=== PATIENT | male | born 1945 | race Caucasian/White ===

== ENCOUNTER 2022-12-20 09:30 | Outpatient (OUT) | payer MEDICARE, OTHER, SELFPAY ==
[2022-12-20 10:09] LABS: Basophils Percent Auto 0.6 % (0.2-2.0); Eosinophils Absolute Auto 0.3 10^3/uL (0.0-0.7); Eosinophils Percent Auto 3.6 % (0.9-7.0); Hematocrit 42.8 % (42.0-54.0); Hemoglobin 13.9 g/dL (14.0-18.0); Immature Granulocytes Abs Auto 0.02 10^3/uL (0.00-0.03); Immature Granulocytes Pct Auto 0.3 % (0.0-0.5); Lymphocytes Absolute Auto 2.2 10^3/uL (1.2-3.8); Mean Corpuscular HGB Conc 32.5 g/dL (29.9-35.2); Mean Corpuscular Hemoglobin 30.5 pg (25.9-34.0); Mean Corpuscular Volume 93.9 fL (80.0-94.0); Mean Platelet Volume 9.9 fL (9.5-13.5); Monocytes Absolute Auto 0.8 10^3/uL (0.3-0.8); Monocytes Percent Auto 11.1 % (1.7-12.0); Neutrophils Absolute Auto 3.9 10^3/uL (1.4-6.5); Neutrophils Percent Auto 54.4 % (43.0-75.0); Platelet Count 252 10^3/uL (150-450); Red Blood Count 4.56 10^6/uL (4.70-6.10); White Blood Count 7.2 10^3/uL (4.0-11.0)
[2022-12-20 10:58] LABS: Alanine Aminotransferase 54 U/L (16-63); Albumin Globulin Ratio 0.9; Albumin Level 3.5 g/dL (3.4-5.0); Alkaline Phosphatase 83 U/L (46-116); Anion Gap 12.6; Aspartate Amino Transferase 44 U/L (15-37); BUN Creatinine Ratio 18.8; Bilirubin Total 1.1 mg/dL (0.2-1.0); Calcium 8.8 mg/dL (8.5-10.1); Carbon Dioxide 25.8 mmol/L (21.0-32.0); Chloride 106 mmol/L (98-107); Chol HDL Ratio 3.6; Cholesterol 145 mg/dL (<=200); Estimated GFR (African America >60 (>=60); Estimated GFR (Non-African Ame >60 (>=60); Globulin 3.8 g/dL; Glucose 108 mg/dL (74-106); HDL Cholesterol 40 mg/dL (40-60); LDL Cholesterol Calculated 81.2 mg/dL; Potassium 4.4 mmol/L (3.5-5.1); Sodium 140 mmol/L (136-145); Total Protein 7.3 g/dL (6.4-8.2); Triglycerides 119 mg/dL (<=150); VLDL CHOLESTEROL 23.8 mg/dL
== END 2022-12-20 09:31 ==
LOC: LAB 09:34
PROVIDERS: PCP Internal Medicine
DX: I10 Essential (primary) hypertension (principal); I25.10 Atherosclerotic heart disease of native coronary artery without angina pectoris
CPT/HCPCS: 36415; 80053; 80061; 85025

== ENCOUNTER 2023-10-06 13:35 | Outpatient (OUT) | payer MEDICARE, OTHER, SELFPAY ==
[2023-10-06 15:11] LABS: Prostate Specific Antigen Dx 4.08 ng/mL (<=4.00)
== END 2023-10-06 13:36 | disposition home or self-care (01) ==
LOC: LAB 13:38
PROVIDERS: PCP Internal Medicine; Visit Provider Urology
DX: R97.20 Elevated prostate specific antigen [PSA] (principal); N40.1 Benign prostatic hyperplasia with lower urinary tract symptoms; Z80.42 Family history of malignant neoplasm of prostate
CPT/HCPCS: 36415; 84153

== ENCOUNTER 2023-11-24 09:53 | Outpatient (OUT) | payer MEDICARE, OTHER, SELFPAY ==
--- NOTE | 2023-11-24 10:05 | CT_ITS ---
[address] [address] Patient Name: KAELYN GARAY MRN: [id number] date: 1945 Sex: M Assigned Patient Location: LAB Current Patient Location: LAB Accession/Order Number: [id number] Exam Date: 11/24/2023 10:35 Report Date: 11/24/2023 14:01 At the request of: TALHA DUPREE Procedure: CT chest wo con EXAMINATION: CT chest wo con HISTORY: Lung Nodule R91.1 COMPARISON: No relevant comparison available. TECHNIQUE: Multi-planar CT images were created with IV contrast. Axial, Coronal, and Sagittal images. Dose reduction techniques were achieved by using automated exposure control and/or adjustment of mA and/or kV according to patient size and/or use of iterative reconstruction technique. FINDINGS: LUNGS: Scattered subcentimeter solid and semisolid nodules the largest measuring 7 mm subpleural right lower lobe axial image 65. Minimal dependent atelectasis. PLEURA: No mass, effusion, or pneumothorax. VASCULATURE: No abnormality. PAMELA: No mass or adenopathy. MEDIASTINUM: No mass or adenopathy. CARDIAC: No enlargement or pericardial effusion. Coronary arteries: Heavy coronary atherosclerosis AORTA: No aneurysm or dissection. CHEST WALL: No mass or axillary adenopathy. BONES: No bone lesion or fracture. Moderate diffuse degenerative changes LIMITED ABDOMEN: No suspicious findings. Limited images of the upper abdomen. OTHER: Negative. CT/CT chest wo con IMPRESSION: Scattered subcentimeter pulmonary nodules largest measuring 7 mm solid subpleural right lower lobe Electronically authenticated by: PATRICIA LUTZ Date: 11/24/2023 14:01
[2023-11-24 10:08] LABS: Basophils Absolute Auto 0.1 10^3/uL (0.0-0.1); Basophils Percent Auto 0.6 % (0.2-2.0); Eosinophils Absolute Auto 0.2 10^3/uL (0.0-0.7); Eosinophils Percent Auto 2.1 % (0.9-7.0); Hemoglobin 14.3 g/dL (14.0-18.0); Immature Granulocytes Abs Auto 0.03 10^3/uL (0.00-0.03); Immature Granulocytes Pct Auto 0.4 % (0.0-0.5); Lymphocytes Absolute Auto 2.3 10^3/uL (1.2-3.8); Lymphocytes Percent Auto 27.8 % (20.5-60.0); Mean Corpuscular HGB Conc 32.5 g/dL (29.9-35.2); Mean Corpuscular Hemoglobin 30.8 pg (25.9-34.0); Mean Corpuscular Volume 94.6 fL (80.0-94.0); Mean Platelet Volume 9.8 fL (9.5-13.5); Monocytes Absolute Auto 0.7 10^3/uL (0.3-0.8); Monocytes Percent Auto 8.6 % (1.7-12.0); Neutrophils Absolute Auto 4.9 10^3/uL (1.4-6.5); Neutrophils Percent Auto 60.5 % (43.0-75.0); Platelet Count 238 10^3/uL (150-450); Red Blood Count 4.65 10^6/uL (4.70-6.10); Red Cell Distribution Width 13.7 % (11.0-15.0); White Blood Count 8.1 10^3/uL (4.0-11.0)
[2023-11-24 10:25] LABS: Alanine Aminotransferase 39 U/L (16-63); Albumin Level 3.6 g/dL (3.4-5.0); Alkaline Phosphatase 89 U/L (46-116); Anion Gap 12.6; Aspartate Amino Transferase 22 U/L (15-37); BUN Creatinine Ratio 20.5; Bilirubin Total 1.1 mg/dL (0.2-1.0); Calcium 9.2 mg/dL (8.5-10.1); Carbon Dioxide 27.6 mmol/L (21.0-32.0); Chloride 105 mmol/L (98-107); Estimated GFR (African America >60 (>=60); Estimated GFR (Non-African Ame >60 (>=60); Globulin 3.6 g/dL; Glucose 106 mg/dL (74-106); Potassium 5.2 mmol/L (3.5-5.1); Sodium 140 mmol/L (136-145); Total Protein 7.2 g/dL (6.4-8.2)
[2023-11-24 11:26] LABS: Chol HDL Ratio 3.1; Cholesterol 130 mg/dL (<=200); HDL Cholesterol 42 mg/dL (40-60); LDL Cholesterol Calculated 72.8 mg/dL; Triglycerides 76 mg/dL (<=150); VLDL CHOLESTEROL 15.2 mg/dL
== END 2023-11-24 09:54 | disposition home or self-care (01) ==
LOC: LAB 09:54
PROVIDERS: PCP Internal Medicine; Visit Provider Internal Medicine
DX: R91.1 Solitary pulmonary nodule (principal); I25.10 Atherosclerotic heart disease of native coronary artery without angina pectoris; E78.00 Pure hypercholesterolemia, unspecified; I10 Essential (primary) hypertension
CPT/HCPCS: 36415; 71250; 80053; 80061; 85025

== ENCOUNTER 2024-10-12 13:58 | Outpatient (OUT) | payer MEDICARE, OTHER, SELFPAY ==
--- OUTSIDE RECORDS SUMMARY | 2024-10-12 14:28 | XMS_ITS | CCD ---
Author Organization [facility] Care Team Providers Care Expedition Supervisor Name Role Phone PHYSICIAN, DEFAULT Unavailable Unavailable PHYSICIAN, DEFAULT Unavailable Unavailable BRUCE YARBROUGH Unavailable Unavailable UNKNOWN, PROVIDER Unavailable Unavailable UNKNOWN, PROVIDER Unavailable Unavailable UNKNOWN, PHYSICIAN Unavailable Unavailable UNKNOWN, PHYSICIAN Unavailable Unavailable ELTAHAWY, DR HOLLINS Admitting Unavailable ELTAHAWY, DR HOLLINS Consulting Unavailable BALL, DR PALENCIA Primary Care Unavailable ELTAHAWY, DR HOLLINS Attending Unavailable MICHAEL, KATARZYNA Admitting Unavailable MICHAEL, KATARZYNA Consulting Unavailable MICHAEL, KATARZYNA Attending Unavailable BALL, DR PALENCIA Primary Care Unavailable WOLFE, DR NEGRON Admitting Unavailable WOLFE, DR NEGRON Consulting Unavailable WOLFE, DR NEGRON Attending Unavailable BALL, DR PALENCIA Primary Care Unavailable MICHAEL, KATARZYNA Attending Unavailable MICHAEL, KATARZYNA Admitting Unavailable BALL, DR PALENCIA Primary Care Unavailable BRUCE YARBROUGH Primary Care Physician [phone] Bruce Yarbrough Primary Care Unavailable Julius Wolfe Attending Unavailable Wolfe, Julius Admitting Unavailable ALLY SHUKLA Attending Unavailable WOLFE, Julius Dumont Attending Unavailable WOLFE, Julius R Attending Unavailable Allergies Allergy Classification Reported Allergen(s) Allergy Type Date of Onset Reaction(s) Facility (1 source) Unable to Assess Drug allergy (disorder) [facility] Repository (1 source) No Known Medication Allergies; Translations: [No Known Medication Allergies] Propensity to adverse reactions (disorder) [facility] Repository Medications Current Medications Medication Drug Class(es) Dates Sig (Normalized) Sig (Original) acetaminophen 325 mg / HYDROcodone bitartrate 7.5 mg oral tablet (1 source) Opioid Agonist Start: 09-04-2022 take 1 tablet by mouth once, then take 1 tablet by mouth every hour [place] 325 mg-7.5 mg oral tablet 1 tab(s), Oral, Once, 1 tab(s), Refill(s) 0, Take 1 hour prior to procedure, [facility]/pharmacy #[id number], 175, cm, 07/26/22 10:23:00 EST, Height/Length Dosing, 90.1, kg, 07/26/22 10:23:00 EST, Weight Dosing Start Date: 09/04/22 Status: Ordered aspirin 81 mg oral tablet (4 sources) Platelet Aggregation Inhibitor, Nonsteroidal Anti-inflammatory Drug Start: 01-21-2020 take 1 tablet by mouth once daily aspirin 81 mg oral tablet 81 mg = 1 tab(s), Oral, Daily, # 30 tab(s), Refills(s) 0 Start Date: 01/21/20 Status: Ordered atorvastatin 40 mg oral tablet (4 sources) HMG-CoA Reductase Inhibitor Start: 07-23-2021 take 1 tablet by mouth once daily atorvastatin 40 mg Tab 40 mg = 1 tab(s), Oral, Daily Start Date: 07/23/21 Status: Ordered benazepril hydrochloride 20 mg oral tablet (4 sources) Angiotensin Converting Enzyme Inhibitor Start: 10-27-2019 take 20 mg by mouth twice daily benazepril 20 mg, Oral, BID Start Date: 10/27/19 Status: Ordered biotin 1 mg oral tablet (4 sources) Start: 07-23-2021 take 1 tablet by mouth once daily biotin 1000 mcg oral tablet 1,000 mcg = 1 tab(s), Oral, Daily, Refills(s) 0 Start Date: 07/23/21 Status: Ordered carvedilol 12.5 mg oral tablet (4 sources) alpha-Adrenergic [place], beta-Adrenergic [place] Start: 07-23-2021 carvedilol 12.5 mg Tab Refills(s) 0 Start Date: 07/23/21 Status: Ordered clopidogrel 75 mg oral tablet (4 sources) P2Y12 Platelet Inhibitor Start: 10-27-2019 take 1 tablet by mouth once daily clopidogrel 75 mg Tab 75 mg = 1 tab(s), Oral, Daily Start Date: 10/27/19 Status: Ordered latanoprost 0.05 mg/ml ophthalmic solution (4 sources) Prostaglandin Analog Start: 07-26-2022 latanoprost Opth 0.005% Kori 1 drop(s), OPTH, Once a day (at bedtime), 2.5 mL, Refill(s) 0 Start Date: 07/26/22 Status: Ordered 12 hr ranolazine 500 mg extended release oral tablet (4 sources) Anti-anginal Start: 07-23-2021 take 1 tablet by mouth twice daily ranolazine 500 mg oral ER Tab 500 mg = 1 tab(s), Oral, BID, Refills(s) 0 Start Date: 07/23/21 Status: Ordered Vitamin B6 100 mg Tab (4 sources) Start: 07-23-2021 take 1 tablet by mouth once daily Vitamin B6 100 mg Tab 100 mg = 1 tab(s), Oral, Daily, Refills(s) 0 Start Date: 07/23/21 Status: Ordered Problems Active Problems Problem Classification Problem Date Documented Date Episodic/Chronic Aortic; peripheral; and visceral artery aneurysms (2 sources) Thoracic aortic ectasia; Translations: [Thoracic aortic ectasia] Onset: 12-20-2022 Chronic Cardiac dysrhythmias (1 source) Supraventricular tachycardia; Translations: [SUPRAVENTRICULAR TACHYCARDIA] Onset: 05-12-2017 Chronic Cardiac dysrhythmias (7 sources) Palpitations; Translations: [PALPITATIONS] Onset: 05-12-2017 Episodic Coronary atherosclerosis and other heart disease (15 sources) Atherosclerotic heart disease of [place] coronary artery without angina pectoris; Translations: [Coronary arteriosclerosis] Onset: 05-12-2017 Chronic Diabetes mellitus without complication (4 sources) Hyperglycemia 07-19-2020 Episodic Disorders of lipid metabolism (7 sources) Hyperlipidemia, unspecified; Translations: [Hyperlipidemia] Onset: 05-12-2017 10-27-2019 Chronic Esophageal disorders (5 sources) Gastro-esophageal reflux disease without esophagitis; Translations: [Gastroesophageal reflux disease] Onset: 05-12-2017 10-27-2019 Chronic Essential hypertension (6 sources) Hypertensive disorder; Translations: [Essential (primary) hypertension] Onset: 12-20-2022 07-19-2020 Chronic Genitourinary symptoms and ill-defined conditions (4 sources) Ad hematuria 10-02-2020 Episodic Hyperplasia of prostate (11 sources) Benign prostatic hypertrophy with outflow obstruction; Translations: [Benign prostatic hyperplasia with lower urinary tract symptoms] Onset: 07-26-2022 Chronic Osteoarthritis (4 sources) Osteoarthritis 10-27-2019 Chronic Other aftercare (7 sources) Long-term current use of 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; Translations: [oil heaterman (current) use of 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s] Onset: 07-26-2022 Episodic Other diseases of bladder and urethra (4 sources) Hypertrophy of bladder 08-25-2020 Chronic Other male genital disorders (4 sources) Impotence 01-21-2020 Chronic Other nervous system disorders (4 sources) H/O: glaucoma 10-27-2019 Episodic Residual codes; unclassified (3 sources) Family history of cancer; Translations: [Family history of malignant neoplasm of prostate] Onset: 07-26-2022 Episodic Residual codes; unclassified (8 sources) Family history of prostate cancer 08-25-2020 Episodic Screening or history of mental health and substance abuse (5 sources) Personal history of nicotine dependence; Translations: [Ex-smoker] Onset: 05-12-2017 10-27-2019 Episodic Unclassified (15 sources) Abnormal result of other cardiovascular function study; Translations: [Elevated prostate specific antigen [PSA]] Onset: 05-12-2017 Episodic Unclassified (2 sources) Unknown / UNK(Unknown) Onset: 05-12-2017 Unclassified (1 source) Stenosis of coronary artery stent, initial encounter; Translations: [STENOSIS OF CORONARY ARTERY STENT, INITIAL ENCOUNTER] Onset: 05-12-2017 Unclassified (4 sources) Irreducible right inguinal hernia 07-20-2020 Past or Other Problems Problem Classification Problem Date Documented Da te Episodic/Chronic Nonspecific chest pain (1 source) Chest pain, unspecified; Translations: [CHEST PAIN, UNSPECIFIED] Onset: 05-12-2017 Episodic Other aftercare (2 sources) oil heaterman (current) use of antithrombotics/ antiplatelets; Translations: [oil heaterman (current) use of aspirin] Onset: 05-12-2017 Episodic Results Test Name Value Interpretation Reference Range Facility Ambulatory Visit Summaryon 0 10-13-2023 Ambulatory Visit Summary ONI GARAY :1945 Visit Date:10/13/2023 Ambulatory Visit Instructions Your Diagnosis BPH with urinary obstruction Elevated PSA Family history of prostate cancer Anticoagulant long-term use Your Care Team Attending Physician - Julius WOLFE MD Primary Care Physician - BRUCE YARBROUGH DO This Is Your Medications List Contact prescribing physician if questions or concerns aspirin (aspirin 81 mg oral tablet) atorvastatin (atorvastatin 40 mg Tab) benazepril biotin (biotin 1000 mcg oral tablet) carvedilol (carvedilol 12.5 mg Tab) clopidogrel (clopidogrel 75 mg Tab) latanoprost ophthalmic (latanoprost Opth 0.005% Kori) pyridoxine (Vitamin B6 100 mg Tab) ranolazine (ranolazine 500 mg oral ER Tab) Procedures Performed Transrectal biopsy of prostate using ultrasound (US) guidance (09/24/2022), TURP - Transurethral resection of prostate (09/07/2020), Cystoscopy (08/15/2020), Repair of inguinal hernia (08/02/2020), Colonoscopy (05/31/2020), Transrectal biopsy of prostate using ultrasound (US) guidance (08/04/2012), Cardiac catheterisation, LASIK - laser assisted in situ keratomileusis, Stent placement. Discharge Vitals Heart Rate (Peripheral) 84 Respiratory Rate 16 Blood Pressure 135/79 Height 175 cm Height 69 in Weight 91 kg Weight 200.2 lb BMI 29.71 What to do next Scheduled Follow-Up Appointments Friday 11:00 AM EDT With: STONE BOSWELL, Julius Dumont Where: [facility] Patient Educationon 10-13-19 Patient Education Oncology Prostate Cancer Screening Prostate cancer screening is testing that is done to check for the presence of prostate cancer in men. The prostate gland is a walnut-sized gland that is located below the bladder and in front of the rectum in males. The function of the prostate is to add fluid to semen during ejaculation. Prostate cancer is one of the most common types of cancer in men. Who should have prostate cancer screening? Screening recommendations vary based on age and other risk factors, as well as between the professional organizations who make the recommendations. In general, screening is recommended if: ? You are age 50 to 70 and have an average risk for prostate cancer. You should talk with your health care provider about your need for screening and how often screening should be done. Because most prostate cancers are slow growing and will not cause , screening in this age group is generally reserved for men who have a 10- to 15-year life expectancy. ? You are younger than age 50, and you have these risk factors: ? Having a father, brother, or uncle who has been diagnosed with prostate cancer. The risk is higher if your family member's cancer occurred at an early age or if you have multiple family members with prostate cancer at an early age. ? Being a male who is Black or is of [place] or sub-Saharan descent. In general, screening is not recommended if: ? You are younger than age 40. ? You are between the ages of 40 and 49 and you have no risk factors. ? You are 70 years of age or older. At this age, the risks that screening can cause are greater than the benefits that it may provide. If you are at high risk for prostate cancer, your health care provider may recommend that you have screenings more often or that you start screening at a younger age. How is screening for prostate cancer done? The recommended prostate cancer screening test is a blood test called the prostate-specific antigen (PSA) test. PSA is a protein that is made in the prostate. As you age, your prostate naturally produces more PSA. Abnormally high PSA levels may be caused by: ? Prostate cancer. ? An enlarged prostate that is not caused by cancer (benign prostatic hyperplasia, or BPH). This condition is very common in older men. ? A prostate gland infection (prostatitis) or urinary tract infection. ? Certain medicines such as male hormones (like testosterone) or other medicines that raise testosterone levels. A rectal exam may be done as part of prostate cancer screening to help provide information about the size of your prostate gland. When a rectal exam is performed, it should be done after the PSA level is drawn to avoid any effect on the results. Depending on the PSA results, you may need more tests, such as: ? A physical exam to check the size of your prostate gland, if not done as part of screening. ? Blood and imaging tests. ? A procedure to remove tissue samples from your prostate gland for testing (biopsy). This is the only way to know for certain if you have prostate cancer. What are the benefits of prostate cancer screening? ? Screening can help to identify cancer at an early stage, before symptoms start and when the cancer can be treated more easily. ? There is a small chance that screening may lower your risk of dying from prostate cancer. The chance is small because prostate cancer is a slow-growing cancer, and most men with prostate cancer from a different cause. What are the risks of prostate cancer screening? The main risk of prostate cancer screening is diagnosing and treating prostate cancer that would never have caused any symptoms or problems. This is called overdiagnosisand overtreatment. PSA screening cannot tell you if your PSA is high due to cancer or a different cause. A prostate biopsy is the only procedure to diagnose prostate cancer. Even the results of a biopsy may not tell you if your cancer needs to be treated. Slow-growing prostate cancer may not need any treatment other than monitoring, so diagnosing and treating it may cause unnecessary stress or other side effects. Questions to ask your health care provider ? When should I start prostate cancer screening? ? What is my risk for prostate cancer? ? How often do I need screening? ? What type of screening tests do I need? ? How do I get my test results? ? What do my results mean? ? Do I need treatment? Where to find more information ? The [place] [employer]: www.cancer.org ? [place] [employer]: www.auanet.org Contact a health care provider if: ? You have difficulty urinating. ? You have pain when you urinate or ejaculate. ? You have blood in your urine or semen. ? You have pain in your back or in the area of your prostate. Summary ? Prostate cancer is a common type of cancer in men. The prostate gland is located below the bladder and in front of the rectum. This gland adds flu (more content not included)... Normal [facility] Urology Office/Clinic Noteon 10-13-2023 Urology Office/Clinic Note Chief Complaint 1yr PSA HPI Staff 1 year f/u with PSA. Dx: BPH with urinary obstruction (TURP 09/07/20), elevated PSA, family hx of prostate cancer (father and brother) and 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 correction use. PSA: 10/06/23 is 4.08 and previous 07/16/22 was 3.67 Negative MRI of prostate 08/15/22. Negative TRUS Bx 09/24/22 and 08/04/12. No urology meds listed. Denies pain/burning and visible blood in urine. Denies difficulty w/stream. No concerns at this time. History of Present Illness Tests reviewed: reviewed UA, PSA I have reviewed the previous health record information and history for this patient from Dr. Wolfe. I have reviewed and verified the staff HPI to be accurate for this encounter. Review of Systems PHQ Score Initial Depression Screen Score: 0 SCORE ROS - Provider Constitutional: denies weight loss, denies hot flashes. Eyes: denies eye problems. Gastrointestinal: denies nausea, denies vomiting. Cardiovascular: denies chest pain or angina. Integumentary: no dryness Musculoskeletal: denies musculoskeletal symptoms. ENMT: denies otolaryngeal symptoms. Respiratory: no shortness of breath. Heme/Lymph: denies easy bleeding tendency, denies easy bruising tendency. Psychiatric: no confusion, no anxiety. Genitourinary: See HPI. Physical Exam Vitals & Measurements HR: 84(Peripheral) RR: 16 BP: 135/79 HT: 69 in HT: 175 cm WT: 91 kg WT: 200.2 lb BMI: 29.71 General Appearance: alert, no distress, well nourished, well developed male. Genitourinary: normal scrotum, normal testes, normal urethra, normal epididymis, normal vas deferens/spermatic cord. Flank Pain: none. Bladder: nonpalpable. Assessment/Plan 1. BPH with urinary obstruction (N40.1: Benign prostatic hyperplasia with lower urinary tract symptoms) S/p TURP 09/07/20. UA today negative for blood and infection. Not currently taking any BPH medications. Not voicing any urinary habit complaints. 2. Elevated PSA (R97.20: Elevated prostate specific antigen [PSA]) PSA 01/2021 - 0.72 (Finasteride = 1.44) 07/16/22 - 3.67 10/06/23 - 4.08 S/p TRUS/bx 08/04/12 - Neg. MRI of prostate 08/15/22 - Prostate volume 64 cc. No suspicious findings. S S/p TRUS/bx 09/24/22 - Neg. Discussed PSA level has slightly increased from prior. Has had 2 negative biopsies and a negative MRI. Advised pt current level is wnl for him. No indication for further evaluation at this time. Pt agrees to continue to monitor PSA level for now in light of strong family hx -PSA and QASIM in 1 yr 3. Family history of prostate cancer (Z80.42: Family history of malignant neoplasm of prostate) Father & brother. [1] States his father passed 80 yo and his prostate cancer did metastasize but does not know for sure what he from. 4. Anticoagulant long-term use (Z79.01: oil heaterman (current) use of 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s) Plavix and Aspirin due to heart stents. Higher risk for procedural intervention. [2] Follow-up With When Contact Information STONE BOSWELL, Julius R, URL [facility] [address], [place] [address]- [phone] Additional Instructions: 1 yr w/ PSA Patient Education Prostate Cancer Screening I, Stacie Khan, personally scribed for Dr. Wolfe on 10/13/2023 12:20:02. . Documentation recorded by the scribe, Stacie Khan, accurately reflects the services(s) I performed and decisions made by me. Authenticated by Dr. Wolfe on 10/13/2023 12:21:48. Problem List/Past Medical History Ongoing Anticoagulant long-term use ASHD (arteriosclerotic heart disease) Benign localized hyperplasia of prostate with urinary obstruction and lower urinary tract symptoms Bladder wall thickening BPH with urinary obstruction Chronic GERD Coronary artery disease Elevated fasting glucose Elevated PSA Ex-smoker Family history of malignant neoplasm of prostate in father Family history of prostate cancer Gross hematuria H/O: glaucoma HTN (hypertension) Hyperlipidemia Impotence Irreducible right inguinal hernia Osteoarthritis Historical No qualifying data Procedure/Surgical History Transrectal biopsy of prostate using ultrasound (US) guidance (09/24/2022), TURP - Transurethral resection of prostate (09/07/2020), Cystoscopy (08/15/2020), Repair of inguinal hernia (08/02/2020), Colonoscopy (05/31/2020), Transrectal biopsy of prostate using ultrasound (US) guidance (08/04/2012), Cardiac catheterisation, LASIK - laser assisted in situ keratomileusis, Stent placement. Medications aspirin 81 mg oral tablet, 81 mg= 1 tab(s), Oral, Daily atorvastatin 40 mg Tab, 40 mg= 1 tab(s), Oral, Daily benazepril, 20 mg, Oral, BID biotin 1000 mcg oral tablet, 1000 mcg= 1 tab(s), Oral, Daily carvedilol 12.5 mg Tab clopidogrel 75 mg Tab, 75 mg= 1 tab(s), Oral, Daily latanoprost Opth 0.005% Kori, 1 drop(s), OPTH, Once a day (at bedtime) ranolazine 500 mg oral ER Tab, 500 mg= 1 tab(s), Oral, BID Vitamin B6 (more content not included)... Normal [facility] Comment on above: Result Comment: Electronically Signed By : STONE BOSWELL, Julius Dumont\.br\Date and Time Signed: 10/13/23 12:21 EDT\.br\Electronically Co-Signed By: Stacie Khan\.br\Date and Time Co-Signed: 10/13/23 12:20 EDT Office Visiton 12-20-2022 Follow-up visit [id number] Trina Garay 1945 M Date Provider Department Center 12/20/2022 ALLY GUZMAN CARD [facility] Family History Problem Relation Age of Onset Cancer Other Hypertension Other Hyperlipidemia Other Family Status - Relation Status Age at Other Level of Service:[address] [place] OFFICE/OUTPATIENT ESTABLISHED MOD [facility] 30-39 MIN Reason for Visit and Comments: Coronary Artery Disease [187] Hypertension [274497] Hyperlipidemia [182] Normal [facility] [place] MR prostate wo/w conon 08-16 MR prostate wo/w con [facility] [place] [place] [address] MRI Report Signed Patient: Oni Garay MR#: [id number] : 1945 Acct:[id number] Age/Sex: 77 / M ADM Date: 08/15/22 Loc: Room: Type: [facility] Attending Dr: Julius Wolfe MD Copies to: Julius Wolfe MD Ordering Provider: Julius Wolfe MD Date of Service: 08/15/22 MR/MR prostate wo/w con: R97.20 EXAMINATION: MR prostate wo/w con HISTORY: Elevated PSA. COMPARISON: NONE TECHNIQUE: Multiparametric imaging of the prostate gland was performed with IV contrast. FINDINGS: Prostate Dimensions: 4.9 x 4.2 x 5.9 cm Prostate Volume: 64 mL Peripheral Zone: Atrophic and Heterogenous inT2 signal suggestive of prior prostatitis. No suspicious T2 or ADC map abnormality is identified to suggest prostate malignancy. Central/Transitional Zone: BPH changes. Seminal Vesicles: Decompressed without focal abnormality. Neurovascular bundles: Unremarkable. Lymphadenopathy: No evidence of lymphadenopathy. Bladder: Diverticulosis. Bowel: The visualized bowel is without acute abnormality. Peritoneal Cavity: Left-sided fat filled inguinal hernia. Bones: No suspicious bony lesion. MR/MR prostate wo/w con IMPRESSION: No MRI evidence of prostate malignancy. BPH changes. Impression dictated by: Valentin Redman Jr., D.OKamlesh08/16/2022 12:50 PM Dictation Location: [place] [address] Transcribed By: [facility] 08/16/22 1250 Dictated By: Valentin Redman Jr, DO 08/16/22 1246 Signed By: 08/16/22 1250 Normal [facility] ISTAT XRay CREon 08-15-2022 Creatinine [Mass/Vol] 1.3 mg/dL Normal 0.6-1.3 [facility] Comment on above: Result Comment: ER/ESD physician is noti fied/shown all ISTAT results. Critical values may be confirmed by laboratory testing if deemed necessary by ER attending doctor. Performed By: #### I SCRE #### [address] Point of Care testing , ISTAT GFR ( > 60 [facility] Comment on above: Result Comment: GFR estimated reference range: According to KDOQI guidelines, <60 ml/min/1.73m2 is sufficient to diagnose a patient with chronic kidney disease. PERFORMED BY: [place] [address] PATHOLOGIST BITUMASTIC APPLIER ISABELL FINLEY M.D. Performed By: #### I SCRE #### [address] Point of Care testing , ISTAT GFR (Non- Am 54 [facility] Comment on above: Performed By: #### ISCRE #### [address] Point of Care testing , ECHOCARDIO M/2D COMPLETEon 0 09-12-2021 ECHOCARDIO M/2D COMPLETE Patient: ONI GARAY Exam Date: 09/12/2021 : 1945 Gender:M Ordering : DR GURVINDER DE LOS SANTOS M.D. Admission #: [id number] Family : DR BRUCE YARBROUGH D.O. Order #: [id number] CLICK HERE TO VIEW EXAM ECHOCARDIOGRAM REPORT PROCEDURE: CARDIO PULMONARY ECHOCARDIO M/2D COMP INDICATIONS: Palpitations, H/O Stents COMPARISON: None. DESCRIPTION: COMPLETE ECHOCARDIOGRAM Real-time transthoracic echocardiography with 2D, M-mode, spectral and color flow Doppler performed. QUALITY: Technical quality was limited. 69 200# 140/76 HR 73 LEFT VENTRICLE: Normal chamber size. Normal left ventricular wall thickness. Global left ventricular systolic function is normal. Visual estimation of left ventricular ejection fraction is 60-65%. No regional wall motion abnormalities. LV EF: DIASTOLIC: Normal diastolic function. ATRIAL SEPTUM: Intact atrial septum. LEFT ATRIUM: Normal chamber size. RIGHT ATRIUM: Normal chamber size. RIGHT VENTRICLE: Mild dilatation. Normal right ventricular systolic function. TRICUSPID VALVE: Normal mobility and thickness. No stenosis with trivial regurgitation. No evidence of pulmonary hypertension. RVSP 27 mmHg MITRAL VALVE: Mildly thickened with normal mobility. No evidence of mitral valve stenosis. Trivial mitral regurgitation. AORTIC VALVE: Normal trileaflet appearance. No evidence of aortic valve stenosis. No aortic regurgitation. AORTIC ROOT: Normal diameter and appearance. PULMONIC VALVE: Not well visualized. No stenosis. Trivial regurgitation. PERICARDIUM: No evidence of pericardial effusion. IVC: Not well visualized. PLEURA: CONCLUSION: 1. Normal ventricular systolic function. 2. No significant valvular dysfunction. 3. Normal right-sided pressures. 4. No pericardial effusion. Adult Echocardiography Procedure Report Left Ventricle Left Atrium Mitral Valve Right Ventricle Aorta Aortic Valve Peak Velocity (Antegrade Flow): 1.29 m/s AoV Area (Peak Floyd): 2.82 cm2, 2.82 cm2 Peak Velocity(Antegrade Flow): 1.29 m/s Peak Gradient(Antegrade Flow): 6.62 mm[Hg] Tricuspid Valve Peak Velocity (Regurgitant Flow): 2.47 m/s, 2.47 m/s, 2.12 m/s Peak Velocity: 0.47 m/s, 0.47 m/s Pulmonic Valve PV Max Floyd (0.6 - 0.9 m per sec): 0.83 m/s PV Max Gradient: 2.77 mm[Hg] Right Atrium Dictated by: Taco Ball M.D. on 09/12/2021 at 17:59 Approved by: Taco Ball M.D. on 09/12/2021 at 18:02 Normal [facility] CBC AUTO DIFFon 07-20-2021 BASO # 0.1 103/ul Normal 0.0-0.1 [facility] Comment on above: Performed By: #### CBC #### [facility] [address] [place] [address] Dr. Shelby Quiñonez Basophils/100 WBC (Bld) 0.8 % Normal 0.2-2.0 [facility] Comment on above: Performed By: #### CBC #### [facility] [address] [place] [address] Dr. Shelby Quiñonez EO # 0.2 103/ul Normal 0.0-0.7 [facility] Comment on above: Performed By: #### CBC #### [facility] [address] [place] [address] Dr. Shelby Quiñonez Eosinophils/100 WBC (Bld) 2.4 % Normal 0.9-7.0 [facility] Comment on above: Performed By: #### CBC #### [facility] [address] [place] [address] Dr. Shelby Quiñonez Erythrocyte distribution width (RBC) [Ratio] 13.5 % Normal 11.0-15.0 [facility] Comment on above: Performed By: #### CBC #### [facility] [address] [place] [address] Dr. Shelby Quiñonez Hematocrit (Bld) [Volume fraction] 43.2 % Normal 42.0-54.0 [facility] Comment on above: Performed By: #### CBC #### [facility] [address] [place] [address] Dr. Shelby Quiñonez Hemoglobin (Bld) [Mass/Vol] 13.9 g/dL Critically low 14.0-18.0 [facility] Comment on above: Performed By: #### CBC #### [facility] [address] [place] [address] Dr. Shelby Quiñonez IG # 0.02 10e3/ul Normal 0.00-0.03 [facility] Comment on above: Performed By: #### CBC #### [facility] [address] [place] [address] Dr. Shelby Quiñonez IG % 0.3 % Normal 0.0-0.5 [facility] Comment on above: Performed By: #### CBC #### [facility] [address] [place] [address] Dr. Shelby Quiñonez LYMPH # 2.5 103/ul Normal 1.2-3.8 [facility] Comment on above: Performed By: #### CBC #### [facility] [address] [place] [address] Dr. Shelby Quiñonez Lymphocytes/100 WBC (Bld) 34.0 % Normal 20.5-60.0 [facility] Comment on above: Performed By: #### CBC #### [facility] [address] [place] [address] Dr. Shelby Quiñonez MANUAL DIFF REQ NO Normal [facility] Comment on above: Performed By: #### CBC #### [facility] [address] [place] [address] Dr. Shelby Quiñonez MCH (RBC) [Entitic mass] 30.6 pg Normal 25.9-34.0 [facility] Comment on above: Performed By: #### CBC #### [facility] [address] [place] [address] Dr. Shelby Quiñonez MCHC (RBC) [Mass/Vol] 32.2 g/dL Normal 29.9-35.2 [facility] Comment on above: Performed By: #### CBC #### [facility] [address] [place] [address] Dr. Shelby Quiñonez MCV (RBC) [Entitic vol] 95.2 fL Critically high 80.0-94.0 [facility] Comment on above: Performed By: #### CBC #### [facility] [address] [place] [address] Dr. Shelby Quiñonez MONO # 0.6 103/ul Normal 0.3-0.8 [facility] Comment on above: Performed By: #### CBC #### [facility] [address] [place] [address] Dr. Shelby Quiñonez Monocytes/100 WBC (Bld) 8.6 % Normal 1.7-12.0 [facility] Comment on above: Performed By: #### CBC #### [facility] [address] [place] [address] Dr. Shelby Quiñonez NEUT # 3.9 103/ul Normal 1.4-6.5 [facility] Comment on above: Performed By: #### CBC #### [facility] [address] [address] [address] Shelby Quiñonez Neutrophils/100 WBC (Bld) 53.9 % Normal 43.0-75.0 [facility] Comment on above: Performed By: #### CBC #### [facility] [address] [place] [address] Dr. Shelby Quiñonez Platelet mean volume (Bld) [Entitic vol] 10.1 fL Normal 9.5-13.5 [facility] Comment on above: Performed By: #### CBC #### [facility] [address] [place] [address] Dr. Shelby Quiñonez PLT 233 103/ul Normal 150-450 [facility] Comment on above: Performed By: #### CBC #### [facility] [address] [place] [address] Dr. Shelby Quiñonez RBC 4.54 106/ul Critically low 4.70-6.10 [facility] Comment on above: Performed By: #### CBC #### [facility] [address] [place] [address] Dr. Shelby Quiñonez WBC 7.2 103/ul Normal 4.0-11.0 [facility] Comment on above: Performed By: #### CBC #### [facility] [address] [place] [address] Dr. Shelby Quiñonez LIPID PROFILEon 07-20-2021 CHOL-HDL RATIO NORM SEE BELOW Normal [facility] Comment on above: Result Comment: 3.3 - 4.4 LOW RISK 4.4 - 7.1 AVERAGE RISK 7.1 - 11.0 MODERATE RISK >11.0 HIGH RISK Performed By: #### C MP, LIPID #### [facility] [address] [place] [address] Dr. Shelby Quiñonez Cholesterol [Mass/Vol] 130 mg/dL Normal <=200 [facility] Comment on above: Performed By: #### CMP, LIPID #### [facility] [address] [place] [address] Dr. Shelby Quiñonez Cholesterol in HDL [Mass/Vol] 43 mg/dL Normal [facility] Comment on above: Performed By: #### CMP, LIPID #### [facility] [address] [address] [address] Shelby Quiñonez Cholesterol in LDL [Mass/Vol] 66.6 mg/dL Normal [facility] Comment on above: Performed By: #### CMP, LIPID #### [facility] [address] [address] [address] Shelby Quiñonez Cholesterol.tota l/Cholesterol in HDL [Mass ratio] 3.0 {ratio} Normal [facility] Comment on above: Performed By: #### CMP, LIPID #### [facility] [address] [place] [address] Dr. Shelby Quiñonez HDL NORMAL > or = 60 mg/dl - LO W CARDIOVASCULAR RISK <40 mg/dl - HIGH CARDIOVASCULAR RISK Normal [facility] Comment on above: Performed By: #### CMP, LIPID #### [facility] [address] [place] [address] Dr. Shelby Quiñonez LDL CALC NORMAL SEE BELOW Normal [facility] Comment on above: Result Comment: <100 mg/dl OPTIMAL 100 - 129 mg/dl NEAR OR ABOVE OPTIMAL 130 - 159 mg/dl BORDERLINE HIGH 160 - 189 mg/dl HIGH >190 mg/dl VERY HIGH Performed By: #### C MP, LIPID #### [facility] [address] [place] [address] Dr. Shelby Quiñonez Triglyceride [Mass/Vol] 102 mg/dL Normal <=150 [facility] Comment on above: Performed By: #### CMP, LIPID #### [facility] [address] [place] [address] Dr. Shelby Quiñonez VLDL CALC 20.4 mg/dL Normal [facility] Comment on above: Performed By: #### CMP, LIPID #### [facility] [address] [place] [address] Dr. Shelby Quiñonez PROF 14(COMP METB)on 022 Albumin [Mass/Vol] 3.6 g/dL Normal 3.5-5.0 [facility] Comment on above: Performed By: #### CMP, LIPID #### [facility] [address] [place] [address] Dr. Shelby Quiñonez Albumin/Globulin [Mass ratio] 1.1 {ratio} Normal [facility] Comment on above: Performed By: #### CMP, LIPID #### [facility] [address] [place] [address] Dr. Shelby Quiñonez ALP [Catalytic activity/Vol] 72 U/L Normal 38-126 [facility] Comment on above: Performed By: #### CMP, LIPID #### [facility] [address] [place] [address] Dr. Shelby Quiñonez ALT [Catalytic activity/Vol] 52 U/L Normal 21-72 [facility] Comment on above: Performed By: #### CMP, LIPID #### [facility] [address] [place] [address] Dr. Shelby Quiñonez Anion gap [Moles/Vol] 10.9 mmol/L Normal [facility] Comment on above: Performed By: #### CMP, LIPID #### [facility] [address] [place] [address] Dr. Shelby Quiñonez AST [Catalytic activity/Vol] 24 U/L Normal 17-59 [facility] Comment on above: Performed By: #### CMP, LIPID #### [facility] [address] [place] [address] Dr. Shelby Quiñonez Bilirubin [Mass/Vol] 1.5 mg/dL Critically high 0.2-1.3 [facility] Comment on above: Performed By: #### CMP, LIPID #### [facility] [address] [place] [address] Dr. Shelby Quiñonez Calcium [Mass/Vol] 9.0 mg/dL Normal 8.4-10.2 [facility] Comment on above: Performed By: #### CMP, LIPID #### [facility] [address] [place] [address] Dr. Shelby Quiñonez Chloride [Moles/Vol] 104 mmol/L Normal 98-107 [facility] Comment on above: Performed By: #### CMP, LIPID #### [facility] [address] [place] [address] Dr. Shelby Quiñonez CO2 [Moles/Vol] 28.5 mmol/L Normal 22.0-30.0 [facility] Comment on above: Performed By: #### CMP, LIPID #### [facility] [address] [place] [address] Dr. Shelby Quiñonez Creatinine [Mass/Vol] 1.16 mg/dL Normal 0.66-1.25 [facility] Comment on above: Performed By: #### CMP, LIPID #### [facility] [address] [place] [address] Dr. Shelby Quiñonez EGFR-AF MACANESE >60 Normal >=60 [facility] Comment on above: Performed By: #### CMP, LIPID #### [facility] [address] [place] [address] Dr. Shelby Quiñonez EGFR-NON AF MACANESE >60 Normal >=60 [facility] Comment on above: Performed By: #### CMP, LIPID #### [facility] [address] [place] [address] Dr. Shelby Quiñonez Globulin (S) [Mass/Vol] 3.3 g/dL Normal [facility] Comment on above: Performed By: #### CMP, LIPID #### [facility] [address] [place] [address] Dr. Shelby Quiñonez Glucose [Mass/Vol] 98 mg/dL Normal 74-106 [facility] Comment on above: Performed By: #### CMP, LIPID #### [facility] [address] [place] [address] Dr. Shelby Quiñonez Potassium [Moles/Vol] 4.4 mmol/L Normal 3.4-5.0 [facility] Comment on above: Performed By: #### CMP, LIPID #### [facility] [address] [place] [address] Dr. Shelby Quiñonez Protein [Mass/Vol] 6.9 g/dL Normal 6.1-8.2 [facility] Comment on above: Performed By: #### CMP, LIPID #### [facility] [address] [address] [address] Shelby Quiñonez Sodium [Moles/Vol] 139 mmol/L Normal 137-145 [facility] Comment on above: Performed By: #### CMP, LIPID #### [facility] [id number] Shelby Quiñonez Urea nitrogen [Mass/Vol] 15.0 mg/dL Normal 9.0-20.0 [facility] Comment on above: Performed By: #### CMP, LIPID #### [facility] [address] [address] [address] Shelby Quiñonez Urea nitrogen/Creatin ine [Mass ratio] 12.9 mg/mg Normal [facility] Comment on above: Performed By: #### CMP, LIPID #### [facility] [address] [address] [address] Shelby Quiñonez Cardiovascular Lab Reporton 05-13-2017 Cardiovascular Lab Report [facility] Patient Name: Oni Garay [facility] MR #: [id number] Physician: Taco Kathleen M.D.Medicine Service Date: 05/12/2017Division of Birthdate: 6Cardiology Room #: [facility] [address] [place], [place] [address]Alerg F[facility] Cardiovascular Laboratory ReportINDICATION: Oni Garya is a 71-year-old man who was recently evaluatedbecause of symptoms of chest pain and an abnormal stress test that showedischemic EKG changes, but normal myocardial perfusion. Because of that, hewas referred for cardiac catheterization. He has a prior history ofmultiple stents to the LAD and right coronary artery.PROCEDURE:1. Bilateral selective coronary angiography from the right radial access.2. FFR assessment of the LAD.3. Administration of intracoronary nitroglycerin.METHOD: Procedure was explained to the patient with risks and benefits.He signed a consent. He was brought to greens laborer in a fasting state. Theright wrist area was prepped and draped in usual fashion. Shad's test wasfavorable. Access in the right radial artery was obtained usingmicropuncture technique. A 6-Bhutanese x 11 cm Hydrophilic sheath wasadvanced. Verapamil was given through the sheath and heparin wasadministered intravenously. Bilateral selective coronary angiography wasthen performed using 6-Bhutanese JL3.5 and JR5 diagnostic catheters.Catheters were removed.Therapeutic ACT was confirmed during the procedure. A 6-Bhutanese XB3.0guiding catheter was advanced and used to engage the left main coronaryostium. A Stream5 FFR wire was advanced and equalization of pressures madeoutside of the guiding catheter. The wire was advanced into the distalLAD. Intracoronary nitroglycerin 100 mcg was administered followed byadministration of intravenous adenosine at 140 mcg/kg/minute over 3minutes. FFR assessment of the LAD was 0.83 indicating non-hemodynamicallysignificant stenosis in the LAD. The wire was removed. Final angiographywas performed. Catheter was removed. Procedure was concluded. The accesssheath in the right radial artery was removed and a compression dressingapplied for hemostasis. He tolerated the procedure well. He wastransferred to cardiovascular recovery area. He will be observed for 3hours and then discharged to home.TOTAL FLUORO TIME: 9.24 minutes.TOTAL AIR KARMA: 609 mGy.TOTAL CONTRAST VOLUME: 80 mL.HEMODYNAMICS:AO 110/63, mean 85.CORONARY ANGIOGRAPHY:This is a right dominant circulation.Left main: This arises from left coronary cusp. It bifurcates into leftanterior descending and circumflex vessels. The left main is free ofdisease.Left anterior descending: This has previously placed stents in theproximal to mid segment. The stents are patent. There is a 40% in-stentrestenosis in the proximal segment. FFR assessment was 0.83 indicatingnon-hemodynamically significant stenosis. The mid to distal LAD hasanother stent that is patent. The rest of the LAD is free of disease. Thediagonal branches have no significant disease.Circumflex vessel: This is large and nondominant. It has a 30% to 40%disease in its mid segment, but no obstructive lesions. Ectasia is notedin the mid segment of the circumflex vessel.Right coronary artery: This arises from the right coronary cusp. It is amoderate size and dominant vessel. It has a previously placed stent in themid segment. The stent is patent with no obstructive lesions.SUMMARY OF THE FINDINGS:1. Mild to moderate disease in the LAD and circumflex vessels.2. Patent right coronary artery stent.3. A 40% in-stent restenosis in the proximal LAD and patent [id number] LAD stent.4. A 30% to 40% stenosis in the mid circumflex vessel.RECOMMENDATIONS:1. Intensified medical therapy.2. Follow up in Cardiology Clinic.Electronically Signed by:Taco Ball M.D. 05/17/2017 12:55 P Taco Ball M.D.Date Dict: 05/12/2017/01:38 P/Taco Ball M.D.Date Trans: 05/13/2017 09:25 A/Megan_JN:[id number]: Ghulam Holm M.D. [address] [place] [address] Vital Signs Date Time Vital Sign Value Performing Clinician Dayo damico 10-13-2023 11:18-0400 Blood Pressure Location Julius WOLFE [facility] 10-13-2023 11:18-0400 Diastolic blood pressure 79 mm[Hg] Julius WOLFE [facility] 10-13-2023 11:18-0400 Heart rate 84 /min Julius WOLFE [facility] 10-13-2023 11:18-0400 Respiratory rate 16 /min Julius WOLFE [facility] 10-13-2023 11:18-0400 Systolic blood pressure 135 mm[Hg] Julius WOLFE [facility] 10-11-2022 11:06-0400 Blood Pressure Location Julius WOLFE [facility] 10-11-2022 11:06-0400 Diastolic blood pressure 86 mm[Hg] Julius WOLFE [facility] 10-11-2022 11:06-0400 Heart rate 70 /min Julius WOLFE [facility] 10-11-2022 11:06-0400 Respiratory rate 16 /min Julius WOLFE [facility] 10-11-2022 11:06-0400 Systolic blood pressure 137 mm[Hg] Julius WOLFE [facility] Encounters Encounter Date Encounter Type Care Provider Facility Start: 11-08-2024 [facility] [place] [facility] Start: 10-13-2023 End: 10-13-2023 ambulatory Julius WOLFE Facility:[facility] [place] [facility] Start: 10-13-2023 End: 10-13-2023 Patient encounter procedure Julius WOLFE [facility] Start: 12-20-2022 End: 12-20-2022 ambulatory [facility] Start: 10-11-2022 End: 10-11-2022 Patient encounter procedure Julius WOLFE [facility] Start: 09-24-2022 End: 09-24-2022 Patient encounter procedure Julius WOLFE [facility] Start: 08-15-2022 End: 08-15-2022 ambulatory Bruce Ball Facility:[facility] Start: 07-26-2022 End: 07-26-2022 Patient encounter procedure Julius WOLFE [facility] Start: 09-12-2021 End: 09-13-[address] GURVINDER DE LOS SANTOS Facility:[facility] Start: 07-20-2021 End: 07-21-2021 ambulatory KATARZYNA RODRIGUEZ Facility:[facility] Start: 02-23-2021 ambulatory KATARZYNA RODRIGUEZ Facility:[facility] Start: 01-12-2021 End: 01-13-[address] JULIUS WOLFE Facility:[facility] Start: 05-12-2017 End: 05-13-2017 Ambulatory PROVIDER UNKNOWN Facility:[facility] Start: 05-06-2017 End: 05-07-2017 Ambulatory DEFAULT PHYSICIAN Facility:[facility] Procedures Date Procedure Procedure Detail Performing Clinician Start: 09-24-2022 Transrectal biopsy o f prostate using ultrasound guidance Julius WOLFE Start: 01-12-[address] GURVINDER STUART Comment on above: Performed By: #### P SAD #### [facility] [address] [place] [address] Estefany Carvajal Start: 09-07-2020 Transurethral prostatectomy Julius WOLFE Start: 08-15-2020 Cystoscopy Julius ABBASI Start: 08-02-2020 Repair of inguinal hernia Julius WOLFE Start: 05-31-2020 Colonoscopy Julius ABBASI Start: 08-04-2012 Transrectal biopsy o f prostate using ultrasound guidance Julius WOLFE Cardiac catheterization Rukhsana WOLFE Comment on above: 2001, 2002, 2011, 2016 Laser assisted in si tu keratomileusis Julius WOLFE Placement of stent Julius ELLISON Immunizations Immunization Date Immunization Notes Care Provider Fa aver[facility] 04-07-2023 influenza virus vaccine, unspecified formulation Julius WOLFE [facility] 11-08-2022 SARS-CoV-2 (COVID-19 ) mRNAMUL.ORD![id number] Julius WOLFE [facility] 03-27-2022 SARS-CoV-2 (COVID-19 ) mRNAMUL.ORD![id number] Julius WOLFE [facility] 03-26-2022 influenza virus vaccine, unspecified formulation Julius WOLFE [facility] 10-12-2021 SARS-CoV-2 mRNA (hhqfsfyuaud-eaqu-fitqv se) vaccine Julius WOLFE [facility] 04-09-2021 SARS-CoV-2 (COVID-19 ) mRNA BNT-162b2 vax Julius WOLFE [facility] 03-29-2021 influenza virus vaccine, unspecified formulation Julius WOLFE [facility] 03-14-2021 influenza virus vaccine, unspecified formulation Julius WOLFE [facility] 09-08-2020 SARS-CoV-2 (COVID-19 ) mRNA BNT-162b2 vax Julius WOLFE [facility] 08-18-2020 SARS-CoV-2 (COVID-19 ) mRNA BNT-162b2 vax Julius WOLFE [facility] 04-07-2020 influenza virus vaccine, unspecified formulation Julius WOLFE [facility] Payers Date Payer Category Payer Medicare [id number] 2022 Self-pay 1958 Medicare [id number] 1959 Private Health Insurance [id number] 1958 Self-pay [id number] 1945 Unknown [id number] 2.16.84 [id number] 1945 Unknown [id number] 2.16.84 [id number] 1945 Unknown [id number] 2.16.84 [id number] 1945 Unknown [id number] 2.16.84 [id number] 1946 Unknown [id number] 2.16.8 [id number] 1945 Unknown [id number] 2.16.8 [id number] Medicare [id number] Unknown Unknown [id number] 2.16.8 [id number] Social History Date Type Detail Facility Start: 07-26-2022 Tobacco smoking status Ex-smoker (fi nding) [facility] Comment on above: Quit in 1996 Sex Assigned At Male [facility] Functional Status Date Assessment Result Facility 10-13-2023 Functional Status N/A [facility] 10-11-2022 Functional Status N/A [facility] 09-19-2022 Functional Status N/A [facility] 07-26-2022 Functional Status N/A [facility] Clinical Notes 07-26-2022 to 10-13-2023 Note Date & Type Note Facility 10-13-2023 Hospital Discharge instructions Patient Education 10/13/2023 12:19:48 Prostate Cancer Screening Prostate Cancer Screening Prostate cancer screening is testing that is done to check for the presence of prostate cancer in men. The prostate gland is a walnut-sized gland that is located below the bladder and in front of the rectum in males. The function of the prostate is to add fluid to semen during ejaculation. Prostate cancer is one of the most common types of cancer in men. Who should have prostate cancer screening? Screening recommendations vary based on age and other risk factors, as well as between the professional organizations who make the recommendations. In general, screening is recommended if: You are age 50 to 70 and have an average risk for prostate cancer. You should talk with your health care provider about your need for screening and how often screening should be done. Because most prostate cancers are slow growing and will not cause , screening in this age group is generally reserved for men who have a 10- to 15-year life expectancy. You are younger than age 50, and you have these risk factors: ?Having a father, brother, or uncle who has been diagnosed with prostate cancer. The risk is higher if your family member's cancer occurred at an early age or if you have multiple family members with prostate cancer at an early age. ?Being a male who is Black or is of [place] or sub-Saharan descent. In general, screening is not recommended if: You are younger than age 40. You are between the ages of 40 and 49 and you have no risk factors. You are 70 years of age or older. At this age, the risks that screening can cause are greater than the benefits that it may provide. If you are at high risk for prostate cancer, your health care provider may recommend that you have screenings more often or that you start screening at a younger age. How is screening for prostate cancer done? The recommended prostate cancer screening test is a blood test called the prostate-specific antigen (PSA) test. PSA is a protein that is made in the prostate. As you age, your prostate naturally produces more PSA. Abnormally high PSA levels may be caused by: Prostate cancer. An enlarged prostate that is not caused by cancer (benign prostatic hyperplasia, or BPH). This condition is very common in older men. A prostate gland infection (prostatitis) or urinary tract infection. Certain medicines such as male hormones (like testosterone) or other medicines that raise testosterone levels. A rectal exam may be done as part of prostate cancer screening to help provide information about the size of your prostate gland. When a rectal exam is performed, it should be done after the PSA level is drawn to avoid any effect on the results. Depending on the PSA results, you may need more tests, such as: A physical exam to check the size of your prostate gland, if not done as part of screening. Blood and imaging tests. A procedure to remove tissue samples from your prostate gland for testing (biopsy). This is the only way to know for certain if you have prostate cancer. What are the benefits of prostate cancer screening? Screening can help to identify cancer at an early stage, before symptoms start and when the cancer can be treated more easily. There is a small chance that screening may lower your risk of dying from prostate cancer. The chance is small because prostate cancer is a slow-growing cancer, and most men with prostate cancer from a different cause. What are the risks of prostate cancer screening? The main risk of prostate cancer screening is diagnosing and treating prostate cancer that would never have caused any symptoms or problems. This is called overdiagnosisand overtreatment. PSA screening cannot tell you if your PSA is high due to cancer or a different cause. A prostate biopsy is the only procedure to diagnose prostate cancer. Even the results of a biopsy may not tell you if your cancer needs to be treated. Slow-growing prostate cancer may not need any treatment other than monitoring, so diagnosing and treating it may cause unnecessary stress or other side effects. Questions to ask your health care provider When should I start prostate cancer screening? What is my risk for prostate cancer? How often do I need screening? What type of screening tests do I need? How do I get my test results? What do my results mean? Do I need treatment? Where to find more information The [place] [employer]: www.cancer.org [employer]: www.auanet.org Contact a health care provider if: You have difficulty urinating. You have pain when you urinate or ejaculate. You have blood in your urine or semen. You have pain in your back or in the area of your prostate. Summary Prostate cancer is a common type of cancer in men. The prostate gland is located below the bladder and in front of the rectum. This gland adds fluid to semen during ejaculation. Prostate cancer screening may identify cancer at an early stage, when the cancer can be treated more easily and is less likely to have spread to other areas of the body. The prostate-specific antigen (PSA) test is the recommended screening test for prostate cancer, but it has associated risks. Discuss the risks and benefits of prostate cancer screening with your health care provider. If you are age 70 or older, the risks that screening can cause are greater than the benefits that it may provide. This information is not intended to replace advice given to you by your health care provider. Make sure you discuss any questions you have with your health care provider. Document Revised: 12/24/2021 Document Reviewed: 12/24/2021 [employer] Patient Education 2022 [employer]. Follow Up Care 10/11/2022 11:58:00 With:STONE BOSWELL, Julius Dumont, URL Address: [facility] [address] [place] [phone] When: Unknown Comments:1 yr w/ PSA [facility] 12-20-2022 Note Cardiology Clinic No te Subjective Oni Garay is a 77 y.o. year old male with coronary artery disease status post PCI of LAD in 2011 and 2012, atrial tachycardia, hypertension, hyperlipidemia and palpitations Patient Active Problem List Diagnosis Abnormal results of cardiovascular function studies Anticoagulant long-term use Atrial tachycardia (CMS/HCC) Bladder wall thickening Benign localized hyperplasia of prostate with urinary obstruction and lower urinary tract symptoms BPH with urinary obstruction Chest pain Chronic GERD ASHD (arteriosclerotic heart disease) Ex-smoker Elevated PSA Elevated fasting glucose Coronary atherosclerosis Coronary artery disease Family history of malignant neoplasm of prostate Gross hematuria HTN (hypertension) H/O: glaucoma Essential hypertension Hyperlipidemia Irreducible right inguinal hernia Osteoarthritis Palpitations Family History Problem Relation Name Age of Onset Cancer Other Hypertension Other Hyperlipidemia Other Social History Tobacco Use Smoking status: Former Types: Cigarettes Smokeless tobacco: Never Substance Use Topics Alcohol use: Yes Comment: occasional HPI Mr Garay is a 77-year-old coronary artery disease status post PCI x2 to LAD 2001, RCA [id number] 2011, x2 stents in 2012, atrial tachycardia, hypertension, hyperlipidemia and palpitations. Uppdate: 05/07/2017 He is seen in follow up on chest pain and abnormal stress test.He recently was seen by Dr Holm and he underwent a stress test to investigate chest discomfort. This showed ischemic ECG changes in II, III, aVF, V4-6 but normal perfusion. He went 4 min 2 sec on the treadmill and he says he felt tightness in the chest and labored breathing. He has complex CAD history, multiple cath procedures and stents, last one in 2014 was diagnostic showing patent LAD stent and moderate disease in the Circumflex. The RCA was small and with no significant disease. He has palpitations that happen once or twice a week, lasting about few seconds. Echocardiogram in 2015 showed normal LV systolic function with no valvular dysfunction. Update Staying pretty active doing yard work and remodeling the house No chest pain or shortness of breathing Occasional fluttering occurring spontaneously lasting about 30 seconds Has arthritis which is somewhat bothersome Blood pressure runs 130s/70s Review of Systems Cardiovascular: Positive for palpitations. Negative for chest pain, claudication, dyspnea on exertion, irregular heartbeat, leg swelling, near-syncope, orthopnea, paroxysmal nocturnal dyspnea and syncope. Neurological: Negative for dizziness and light-headedness. Objective Visit Vitals BP (!) 154/92 (BP Location: Left arm, Patient Position: Sitting) Pulse 89 Ht 1.753 m (5' 9 ) Wt 93.4 kg (206 lb) SpO2 98% BMI 30.42 kg/m??? Smoking Status Former BSA 2.13 m??? Physical Exam General: Awake, alert, NAD Pulm: Breath sounds clear to ascultation bilaterally with no wheeze, crackles or rhonchi Cards: Regular rate and rhythm, S1, S2. No S3 or S4 gallop. Murmur: none Abd: Soft, Nontender, physiologic bowel sounds are present Extr: Lower extremity edema: None. DP pulses:2+ Skin: warm, dry, well perfused Neuro: A&Ox3, No gross deficits Allergies No Known Allergies Medications Current Outpatient Medications: aspirin 81 mg EC tablet, in the morning., Disp: , Rfl: atorvastatin (Lipitor) 40 mg tablet, TAKE 1 TABLET BY MOUTH DAILY, Disp: 90 tablet, Rfl: 3 benazepril (Lotensin) 20 mg tablet, TAKE 1 TABLET BY MOUTH TWICE DAILY, Disp: 180 tablet, Rfl: 1 carvedilol (Coreg) 25 mg tablet, TAKE 1 TABLET BY MOUTH TWICE DAILY, Disp: 180 tablet, Rfl: 3 clopidogrel (Plavix) 75 mg tablet, TAKE 1 TABLET BY MOUTH DAILY, Disp: 90 tablet, Rfl: 3 nitroglycerin (Nitrostat) 0.4 mg SL tablet, nitroglycerin 0.4 mg sublingual tablet, Disp: , Rfl: ranolazine (Ranexa) 500 mg 12 hr tablet, TAKE 1 TABLET BY MOUTH TWICE DAILY, Disp: 180 tablet, Rfl: 3 Recent Labs 07/21/2021 CBC: WBC 7.2, hemoglobin 13.9, hematocrit 43.2, platelets 233 Sodium 139, potassium 4.4, chloride 104, BUN 15, creatinine 1.16, estimated GFR greater than 60% Total cholesterol 130, HDL 43, LDL 68.6, triglycerides 102 Imaging and other tests Echo: 09/12/2021 Normal ventricular systolic function No significant valvular dysfunction Normal right-sided pressures No pericardial effusion Normal diameter and appearing aortic root Cardiac catheter 05/12/17 .SUMMARY OF THE FINDINGS: 1. Mild to moderate disease in the LAD and circumflex vessels. 2. Patent right coronary artery stent. 3. A 40% in-stent restenosis in the proximal LAD and patent [id number] LAD stent. 4. A 30% to 40% stenosis in the mid circumflex vessel. Echo 09/2014 Global left ventricular systolic function is normal. Grade 2, moderate diastolic dysfunction (pseudonormalized LV filling alejandro (more content not included)... [facility] 12-20-2022 Note Patient here for 1 y ear follow up CAD, hypertension, hyperlipidemia, and dilatation of aorta. No recent labs or imaging. Denies chest pain and SOB. Still gets intermittent palpitations, a few times a month- lasting a few seconds at a time. No more than usual for him. Hasn't taken morning meds yet today. Review of Systems Cardiovascular: Positive for palpitations. Hematologic/Lymphatic: Bruises/bleeds easily. Musculoskeletal: Positive for arthritis, back pain and joint pain. All other systems reviewed and are negative. [facility] 10-11-2022 Hospital Discharge instructions Patient Education 10/11/2022 11:54:32 Prostate Cancer Screening Prostate Cancer Screening The prostate is a walnut-sized gland that is located below the bladder and in front of the rectum in males. The function of the prostate (prostate gland) is to add fluid to semen during ejaculation. Prostate cancer is the second most common type of cancer in men. A screening test for cancer is a test that is done before cancer symptoms start. Screening can help to identify cancer at an early stage, when the cancer can be treated more easily. The recommended prostate cancer screening test is a blood test called the prostate-specific antigen (PSA) test. PSA is a protein that is made in the prostate. As you age, your prostate naturally produces more PSA. Abnormally high PSA levels may be caused by: Prostate cancer. An enlarged prostate that is not caused by cancer (benign prostatic hyperplasia, BPH). This condition is very common in older men. A prostate gland infection (prostatitis). Medicines to assist with hair growth, such as finasteride. Depending on the PSA results, you may need more tests, such as: A physical exam to check the size of your prostate gland. Blood and imaging tests. A procedure to remove tissue samples from your prostate gland for testing (biopsy). Who should have screening? Screening recommendations vary based on age. If you are younger than age 40, screening is not recommended. If you are age 40 54 and you have no risk factors, screening is not recommended. If you are younger than age 55, ask your health care provider if you need screening if you have one of these risk factors: ?Being of -[place] descent. ?Having a family history of prostate cancer. If you are age 55 69, talk with your health care provider about your need for screening and how often screening should be done. If you are older than age 70, screening is not recommended. This is because the risks that screening can cause are greater than the benefits that it may provide (risks outweigh the benefits). If you are at high risk for prostate cancer, your health care provider may recommend that you have screenings more often or start screening at a younger age. You may be at high risk if you: Are older than age 55. Are -Danish. Have a father, brother, or uncle who has been diagnosed with prostate cancer. The risk may be higher if your family member's cancer occurred at an early age. What are the benefits of screening? There is a small chance that screening may lower your risk of dying from prostate cancer. The chance is small because prostate cancer is typically a slow-growing cancer, and most men with prostate cancer from a different cause. What are the risks of screening? The main risk of prostate cancer screening is diagnosing and treating prostate cancer that would never have caused any symptoms or problems (overdiagnosis and overtreatment). PSA screening cannot tell you if your PSA is high due to cancer or a different cause. A prostate biopsy is the only procedure to diagnose prostate cancer. Even the results of a biopsy may not tell you if your cancer needs to be treated. Slow-growing prostate cancer may not need any treatment other than monitoring, so diagnosing and treating it may cause unnecessary stress or other side effects. A prostate biopsy may also cause: Infection or fever. A false negative. This is a result that shows that you do not have prostate cancer when you actually do have prostate cancer. Questions to ask your health care provider When should I start prostate cancer screening? What is my risk for prostate cancer? How often do I need screening? What type of screening tests do I need? How do I get my test results? What do my results mean? Do I need treatment? Contact a health care provider if: You have difficulty urinating. You have pain when you urinate or ejaculate. You have blood in your urine or semen. You have pain in your back or in the area of your prostate. You have trouble getting or maintaining an erection (erectile dysfunction, ED). Summary Prostate cancer is a common type of cancer in men. The prostate (prostate gland) is located below the bladder and in front of the rectum. This gland adds fluid to semen during ejaculation. Prostate cancer screening may identify cancer at an early stage, when the cancer can be treated more easily. The prostate-specific antigen (PSA) test is the recommended screening test for prostate cancer. Discuss the risks and benefits of prostate cancer screening with your health care provider. If you are age 70 or older, screening is likely to lead to more risks than benefits (risks outweigh the benefits). This information is not intended to replace advice given to you by your health care provider. Make sure you discuss any questions you have with your health care provider. Document Released: 04/10/2018 Document Revised: 06/12/2018 Document Reviewed: 04/10/2018 [employer] Patient Education 2020 [employer] Follow Up Care 09/04/2022 11:13:56 With:STONE BOSWELL, Julius Dumont, URL Address: [address] [place] [id number]- When: Unknown [facility] 09-24-2022 Hospital Discharge instructions Patient Education 09/24/2022 15:58:28 [facility] - Transrectal Ultrasound of the Prostate with US guided biopsy Discharge Instructions (CUSTOM) Transrectal Ultrasound of the Prostate with US guided biopsy Even though there are no visible incisions, multiple prostate biopsies have been taken through the rectum and you need to follow some instructions to minimize the risks of bleeding. You may see some blood in your urine and stool for up to 1 week (and blood in the semen for several months) Diet -You may resume your normal diet, but you may want to avoid alcohol, carbonated drinks, caffeine, and spicy foods, which may increase the irritation from the surgery. -Drink plenty of water to keep the urine clear. Activity -You should limit any physical activity for about 48 hours -No heavy lifting or straining (10 pound limit) -No driving a car and limit long car rides for 2 days -No strenuous exercise -No sexual intercourse until this is discussed with your doctor Bowels -Try to keep your bowel movements soft to minimize straining to have a bowel movement. -You may use a stool softener or over the counter laxative if needed -Difficult bowel movement may lead to straining and bleeding from the prostate Medications -You may resume your home medications unless instructed otherwise -Hold aspirin, ibuprofen, Coumadin (warfarin) and other blood thinners for about two days or until there is no active bleeding unless otherwise instructed -Finish the antibiotic which you have already started Things to watch for which would require an Emergency Room visit or call 911: (this is not a complete list) -Persistent or heavy bleeding or blood clots from the rectum or in the urine -Inability to urinate -Fever over 101.5 degrees Fahrenheit, with or without chills -Severe drug reactions with itching, hives or rash -Tenderness or swelling of the calves, chest pain, or shortness of breath Please call the office to arrange for your post-operative appointment in 1-2 weeks [phone] or [phone] Follow Up Care 09/04/2022 11:10:32 With:Julius WOLFE Address: [facility] [address] , [place] [address]- Business (1) When: Unknown Comments:Keep scheduled appointment [facility] 07-26-2022 Hospital Discharge instructions Patient Education 07/26/2022 10:54:26 Prostate Cancer Screening Prostate Cancer Screening The prostate is a walnut-sized gland that is located below the bladder and in front of the rectum in males. The function of the prostate (prostate gland) is to add fluid to semen during ejaculation. Prostate cancer is the second most common type of cancer in men. A screening test for cancer is a test that is done before cancer symptoms start. Screening can help to identify cancer at an early stage, when the cancer can be treated more easily. The recommended prostate cancer screening test is a blood test called the prostate-specific antigen (PSA) test. PSA is a protein that is made in the prostate. As you age, your prostate naturally produces more PSA. Abnormally high PSA levels may be caused by: Prostate cancer. An enlarged prostate that is not caused by cancer (benign prostatic hyperplasia, BPH). This condition is very common in older men. A prostate gland infection (prostatitis). Medicines to assist with hair growth, such as finasteride. Depending on the PSA results, you may need more tests, such as: A physical exam to check the size of your prostate gland. Blood and imaging tests. A procedure to remove tissue samples from your prostate gland for testing (biopsy). Who should have screening? Screening recommendations vary based on age. If you are younger than age 40, screening is not recommended. If you are age 40 54 and you have no risk factors, screening is not recommended. If you are younger than age 55, ask your health care provider if you need screening if you have one of these risk factors: ?Being of -[place] descent. ?Having a family history of prostate cancer. If you are age 55 69, talk with your health care provider about your need for screening and how often screening should be done. If you are older than age 70, screening is not recommended. This is because the risks that screening can cause are greater than the benefits that it may provide (risks outweigh the benefits). If you are at high risk for prostate cancer, your health care provider may recommend that you have screenings more often or start screening at a younger age. You may be at high risk if you: Are older than age 55. Are -[place]anish. Have a father, brother, or uncle who has been diagnosed with prostate cancer. The risk may be higher if your family member's cancer occurred at an early age. What are the benefits of screening? There is a small chance that screening may lower your risk of dying from prostate cancer. The chance is small because prostate cancer is typically a slow-growing cancer, and most men with prostate cancer from a different cause. What are the risks of screening? The main risk of prostate cancer screening is diagnosing and treating prostate cancer that would never have caused any symptoms or problems (overdiagnosis and overtreatment). PSA screening cannot tell you if your PSA is high due to cancer or a different cause. A prostate biopsy is the only procedure to diagnose prostate cancer. Even the results of a biopsy may not tell you if your cancer needs to be treated. Slow-growing prostate cancer may not need any treatment other than monitoring, so diagnosing and treating it may cause unnecessary stress or other side effects. A prostate biopsy may also cause: Infection or fever. A false negative. This is a result that shows that you do not have prostate cancer when you actually do have prostate cancer. Questions to ask your health care provider When should I start prostate cancer screening? What is my risk for prostate cancer? How often do I need screening? What type of screening tests do I need? How do I get my test results? What do my results mean? Do I need treatment? Contact a health care provider if: You have difficulty urinating. You have pain when you urinate or ejaculate. You have blood in your urine or semen. You have pain in your back or in the area of your prostate. You have trouble getting or maintaining an erection (erectile dysfunction, ED). Summary Prostate cancer is a common type of cancer in men. The prostate (prostate gland) is located below the bladder and in front of the rectum. This gland adds fluid to semen during ejaculation. Prostate cancer screening may identify cancer at an early stage, when the cancer can be treated more easily. The prostate-specific antigen (PSA) test is the recommended screening test for prostate cancer. Discuss the risks and benefits of prostate cancer screening with your health care provider. If you are age 70 or older, screening is likely to lead to more risks than benefits (risks outweigh the benefits). This information is not intended to replace advice given to you by your health care provider. Make sure you discuss any questions you have with your health care provider. Document Released: 04/10/2018 Document Revised: 06/12/2018 Document Reviewed: 04/10/2018 [employer] Patient Education 2020 [employer]. Follow Up Care 07/23/2021 13:25:04 With:Julius WOLFE MD, URL Address: [address] [place] [address] [place] [address]- When: Unknown [facility] Evaluation + Plan note No data available for this section [facility] Evaluation + Plan note Future Appointments Appointment Date:10/11/2022 10:30:00 AM Scheduled Provider:Julius WOLFE MD Location:[facility] Appointment Type:URO Office Visit Diagnostic Tests PendingProstate Histology ([facility]) 09/24/22 [facility] Evaluation + Plan note Future Appointments Appointment Date:10/13/2023 10:30:00 AM Scheduled Provider:Julius WOLFE MD Location:[facility] Appointment Type:URO Office Visit Diagnostic Tests PendingPSA Total 08/14/23 [facility] Evaluation + Plan note Future Appointments Appointment Date:10/15/2024 11:00:00 AM Scheduled Provider:Julius WOLFE MD Location:[facility] Appointment Type:URO Office Visit Diagnostic Tests PendingPSA Total 10/13/23 [facility] Progress note No data available for this section [facility] Summary Purpose Family History No Family History Records FoundNo Family History Records FoundNo Family History Records FoundNo Family History Records Found No data available for this section No Family History Records Found Advance Directives No Advanced Directives Records FoundNo Advanced Directives Records FoundNo Advanced Directives Records FoundNo Advanced Directives Records FoundNo Advanced Directives Records Found Additional Source Comments (unrecognized sect ion and content) No Status Records FoundNo Status Records FoundNo Status Records FoundNo Status Records FoundNo Status Records Found INFORMATION SOURCE (unrecogn ized section and content) DATE CREATED AUTHOR 01/06/2018 [facility] DATE CREATED AUTHOR AUTHOR'S ORGANIZ ATION [facility]20[facility] DATE CREATED AUTHOR AUTHOR'S ORGANIZ ATION 08/16/2022 [facility] DATE CREATED AUTHOR AUTHOR'S ORGANIZ ATION 12/22/2022 [facility] DATE CREATED AUTHOR AUTHOR'S ORGANIZ ATION 10/06/2024 [facility] Patient Care team informatio n (unrecognized section and content) Personnel Name: BRUCE YARBROUGH DO Address: Address: [address] [place] [address], [place], [address] Personnel Name: BRUCE YARBROUGH DO Address: Address: [address] [facility], [place], [address] Personnel Name: BRUCE YARBROUGH DO Address: Address: [address] [place] [address], [place], [address] Personnel Name: BRUCE YARBROUGH DO Address: Address: [address] [place] [address], [facility] Hung [place], [address] FOR RECORDS PERTAINING TO PATIENTS WHO ARE OR HAVE BEEN ENROLLED IN A CHEMICAL DEPENDENCY/SUBSTANCEABUSE PROGRAM, SOME INFORMATION MAY BE OMITTED. This clinical summary was aggregated from multiple sources. Caution should be exercised in using it in the provision of clinical care. This summary normalizes information from multiple sources, and as a consequence, information in this document may materially change the coding, format and clinical context of patient data. In addition, data may be omitted in some cases. CLINICAL DECISIONS SHOULD BE BASED ON THE PRIMARY CLINICAL RECORDS. [facility]. provides no warranty or guarantee of the accuracy or completeness of information in this document.
[2024-10-12 14:56] LABS: Prostate Specific Antigen Dx 3.77 ng/mL (<=4.00)
== END 2024-10-12 13:59 | disposition home or self-care (01) ==
LOC: LAB 14:00
PROVIDERS: PCP Internal Medicine; Visit Provider Urology
DX: R97.20 Elevated prostate specific antigen [PSA] (principal); Z80.42 Family history of malignant neoplasm of prostate
CPT/HCPCS: 36415; 84153

== ENCOUNTER 2024-12-14 11:02 | Outpatient (OUT) | payer MEDICARE, OTHER, SELFPAY ==
--- NOTE | 2024-12-14 11:04 | US_ITS ---
The [address] [address] Patient Name: KAELYN GARAY MRN: [id number] date: 1945 Sex: M Assigned Patient Location: [place] Current Patient Location: [place] Accession/Order Number: [id number] Exam Date: 12/14/2024 12:35 Report Date: 12/14/2024 12:45 At the request of: TALHA DUPREE DO Procedure: US renal BI BILATERAL RENAL AND BLADDER ULTRASOUND CLINICAL HISTORY: Acute Right Flank Pain, Abnormal Urine Sediment COMPARISON: CT abdomen pelvis 07/11/2020 Estimation of renal size is approximately 9.7 cm on the right and 10.1 cm on the left. No shadowing calculi or hydronephrosis are identified. No renal mass lesions were imaged. There is no perinephric fluid. The urinary bladder is partially distended with a volume of 378 mL. There is a bladder diverticulum extending off to the left measuring approximately 4.8 x 3.2 x 3.7 cm in size. This was also present at the time of the abdominal CT. No intraluminal abnormalities were imaged. US/US renal BI IMPRESSION: NO OBSTRUCTIVE UROPATHY. URINARY BLADDER DIVERTICULUM. Impression dictated by: Alena Mitchell M.D. 12/14/2024 12:45 PM Dictation Location: [place] [address] Electronically authenticated by: [id number] Y Date: 12/14/2024 12:45
--- OUTSIDE RECORDS SUMMARY | 2024-12-14 11:14 | XMS_ITS | CCD ---
Author Organization [facility] Team Providers Care Manager Business Planning Name Role Phone PHYSICIAN, DEFAULT Unavailable Unavailable [...] KATARZYNA Consulting Unavailable MICHAEL, KATARZYNA Attending Unavailable JOON, DR PALENCIA Primary Care Unavailable WOLFE, DR NEGRON Admitting Unavailable WOLFE, DR NEGRON Consulting Unavailable WOLFE, DR NEGRON Attending Unavailable BALL, DR PALENCIA Primary Care Unavailable MICHAEL, KATARZYNA Attending Unavailable MICHAEL, KATARZYNA Admitting Unavailable BALL, DR PALENCIA Primary Care Unavailable BRUCE YARBROUGH Primary Care Physician Bruce Yarbrough Primary Care Unavailable Julius Wolfe Attending Unavailable WolfeJulius Admitting Unavailable ALLY SHUKLA Attending Unavailable WOLFEJulius Attending Unavailable Allergies Allergy Classification Reported Allergen(s) Allergy Type Date of Onset Reaction(s) Facility (1 source) Unable to Assess Drug allergy (disorder) [address] [place] [address] Repository (1 source) No Known Medication Allergies; Translations: [No Known Medication Allergies] Propensity to adverse reactions (disorder) [facility] Repository Medications Current Medications Medication Drug Class(es) Dates Sig (Normalized) Sig (Original) acetaminophen 325 mg / HYDROcodone bitartrate 7.5 mg oral tablet (1 source) Opioid Agonist Start: 09-04-2022 take 1 tablet by mouth once, then take 1 tablet by mouth every hour [place] 325 mg-7.5 mg oral tablet 1 tab(s), Oral, Once, 1 tab(s), Refill(s) 0, Take 1 hour prior to procedure, [facility]/pharmacy #[id number], 175, cm, 01/13/23 10:23:00 EST, Height/Length Dosing, 90.1, kg, 07/26/22 [...] disease (15 sources) Atherosclerotic heart disease of [place] coronary artery without angina pectoris; Translations: [Coronary [...] sources) Long-term current use of 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; 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] Onset: 07-26-2022 Episodic [...] Onset: 05-12-2017 Episodic Other aftercare (2 sources) prison (current) use of antithrombotics/ antiplatelets; Translations: [prison (current) use of aspirin] Onset: 05-12-2017 Episodic Results Test Name Value Interpretation Reference Range Facility Ambulatory Visit Summaryon 0 11-08-2024 Ambulatory Visit Summary Ambulatory Visit Summary ONI GARAY :1945 Visit Date:11/08/2024 Ambulatory Visit Instructions Your Diagnosis Elevated PSA BPH with urinary obstruction Family history of malignant neoplasm of prostate in father Anticoagulant long-term use Your Care Team Attending Physician - Julius WOLFE MD Primary Care Physician - BRUCE YARBROUGH DO This Is Your Medications List aspirin (aspirin 81 mg oral tablet) atorvastatin [...] in situ keratomileusis, Stent placement. Discharge Vitals Height 175 cm Height 69 in Weight 97.2 kg Weight 214.289 lb BMI 31.74 What to do next You Need to Schedule the Following Appointments Follow Up with STONE BOSWELL, PRATIK Jean Baptiste When: Only if needed Where: [facility] [address] , [place] [address] [phone] Medications What How Much When Instructions Unchanged aspirin (aspirin 81 mg oral tablet) 1 Tablets By Mouth Every day Unchanged atorvastatin (atorvastatin 40 mg Tab) 1 Tablets By Mouth Every day Unchanged benazepril 20 Milligram By Mouth 2 times a day Unchanged biotin (biotin 1000 mcg oral tablet) 1 Tablets By Mouth Every day Unchanged carvedilol (carvedilol 12.5 mg Tab) Unchanged clopidogrel (clopidogrel 75 mg Tab) 1 Tablets By Mouth Every day Unchanged latanoprost ophthalmic (latanoprost Opth 0.005% Kori) 1 Drops Ophthalmic Once a day (at bedtime) Unchanged pyridoxine (Vitamin B6 100 mg Tab) 1 Tablets By Mouth Every day Unchanged ranolazine (ranolazine 500 mg oral ER Tab) 1 Tablets By Mouth 2 times a day Allergies No Known Allergies No Known Medication Allergies Problems Ongoing - Any problem that you are currently receiving treatment for. Anticoagulant long-term use ASHD (arteriosclerotic heart disease) [...] Hyperlipidemia Impotence Irreducible right inguinal hernia Osteoarthritis Patient Survey You may receive a survey via text or e-mail asking about your office visit. Please share your experience with us by completing your survey. We appreciate your feedback and thank you for choosing us for your care. Amanda Mendoza [facility] Urology Office/Clinic Noteon 11-08-2024 Urology Office/Clinic Note Urology Office/Clinic Note Chief Complaint 1 year HPI Staff 1 year f/u with PSA. Dx: BPH with urinary obstruction (TURP 09/07/20), elevated PSA, family hx of prostate cancer (father and brother) and 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 assisted use. PSA: 10/06/23 is 4.08, 07/16/22 was 3.67, 10/12/24 - 3.77 IPSS 4 Pt. denies having pain with urination Pt. denies having gross hematuria Pt. denies having abd pain Pt. denies having flank pain History of Present Illness Tests reviewed: reviewed [...] See HPI. Physical Exam Vitals & Measurements HT: 69 in HT: 175 cm WT: 214.289 lb WT: 97.2 kg BMI: 31.74 General Appearance: alert, no distress, well nourished, well developed male. Assessment/Plan 1. Elevated PSA (R97.20: Elevated prostate specific antigen [PSA]) PSA 01/2021 - 0.72 (Finasteride = 1.44) 07/16/22 - 3.67 10/06/23 - 4.08 10/12/24 - 3.77 S/p TRUS/bx 08/04/12 - Neg. MRI of prostate 08/15/22 - Prostate volume 64 cc. No suspicious findings. S/p TRUS/bx 09/24/22 - Neg. PSA has decreased from prior. Follows w Dr. Yarbrough annually. Advised pt he can have PCP monitor PSA annually given stability. Pt understands and agrees with plan. -PSA due in 1 yr, pt to f/u w PCP to review -F/u PRN w our office 2. BPH with urinary obstruction (N40.1: Benign prostatic hyperplasia with lower urinary tract symptoms) S/p TURP 09/07/20. IPSS 4. UA today shows trace-intact blood (not clinically significant), neg for infection. Denies gross hematuria. Not currently taking any BPH meds. Not voicing any urinary habit complaints. 3. Family history of malignant neoplasm of prostate in father (Z80.42: Family history of malignant neoplasm of prostate) Father & brother. Father passed ~80 yo and did have mets but unsure of distinct cause of . 4. Anticoagulant long-term use (Z79.01: prison (current) use of 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s) Plavix and Aspirin due to heart stents. Higher risk for procedural intervention. [1] Follow-up With When Contact Information STONE BOSWELL, Julius Dumont, URL Only if needed [facility] [address], [place] [address]- [phone] Additional Instructions: Patient Education Prostate Cancer Screening I, Stacie Khan, personally scribed for Dr. Wolfe on 11/08/2024 16:02:08. . Documentation recorded by the scribe, Stacie Khan, accurately reflects the services(s) I performed and decisions made by me. Authenticated by Dr. Wolfe on 11/08/2024 16:02:58. Problem List/Past Medical History Ongoing Anticoagulant long-term [...] mg= 1 tab(s), Oral, BID Vitamin B6 100 mg Tab, 100 mg= 1 tab(s), Oral, Daily Allergies No Known Allergies No Known Medication Allergies Social History Alcohol - Denies Alcohol Use, 01/21/2020 Substance Abuse - Denies Substance Abuse, 07/20/2020 Tobacco - (more content not included)... Normal [facility] Comment on above: Result Comment: Electronically Signed By : Julius WOLFE MD\.br\Date and Time Signed: 11/08/24 16:03 EDT\.br\Electronically Co-Signed By: Stacie Khan.br\Date and Time Co-Signed: 11/08/24 16:02 EDT Office Visiton 12-20-2022 Follow-up visit [id number] Trina Garay 1945 M Date Provider Department Center 12/20/2022 [id number]-IGMAVCAPXALLY SHUKLA Family History Problem Relation Age of Onset Cancer Other Hypertension Other Hyperlipidemia Other Family Status - Relation Status Age at Other Level of Service:49711 [place] OFFICE/OUTPATIENT ESTABLISHED MOD MDM 30-39 MIN Reason for Visit and Comments: Coronary Artery Disease [187] Hypertension [114364] Hyperlipidemia [182] [facility] MR prostate wo/w conon 08-16 MR prostate wo/w con [facility] [place] [address] [place] [address] MRI Report Signed Patient: Oni Garay MR#: [id number] : 1945 Acct:[id number] Age/Sex: 77 / M ADM Date: 08/15/22 Loc: MR Room: Type: [facility] Attending Dr: Julius Wolfe MD Copies to: [...] changes. Impression dictated by: Valentin Redman Jr., D.O.08/16/2022 12:50 PM Dictation Location: [place] [address] Transcribed By: [facility] 08/16/22 1250 Dictated By: Valentin Redman Jr, DO 08/16/22 1246 Signed By: 08/16/22 1250 Normal [facility] ISTAT XRay CREon 08-15-2022 Creatinine [Mass/Vol] 1.3 mg/dL Normal 0.6-1.3 [facility] Comment on above: Result Comment: ER/ESD physician is noti fied/shown all ISTAT results. Critical values may be confirmed by laboratory testing if deemed necessary by ER attending doctor. Performed By: #### I SCRE #### [facility] [address] Point of Care testing , ISTAT GFR ( > 60 Normal [facility] Comment on above: Result Comment: GFR estimated reference range: According to KDOQI guidelines, <60 ml/min/1.73m2 is sufficient to diagnose a patient with chronic kidney disease. PERFORMED BY: [place] [address] PATHOLOGIST SOLE MOLDING MACHINE OPERATOR ISABELL FINLEY M.D. Performed By: #### I SCRE #### [facility] [address] [place] [address] Point of Care testing , ISTAT GFR (Non- Am 54 Normal [facility] Comment on above: Performed By: #### ISCRE #### [facility] [address] [place] [address] Point of Care testing , ECHOCARDIO M/2D COMPLETEon 0 09-12-2021 ECHOCARDIO M/2D COMPLETE Patient: ONI GARAY Exam Date: 09/12/2021 : 1945 Gender:M Ordering : DR GURVINDER DE LOS SANTOS M.D. Admission #: [id number] Family : DR BRUCE YARBROUGH D.OKamlesh Order #: [id number] CLICK HERE TO VIEW EXAM ECHOCARDIOGRAM REPORT [...] M.D. on 09/12/2021 at 18:02 Normal [facility] CBC AUTO DIFFon 07-20-2021 BASO # 0.1 103/ul Normal 0.0-0.1 [facility] Comment on above: Performed By: #### CBC #### [facility] [address] [place] [address] Dr. Shelby Quiñonez Basophils/100 WBC (Bld) 0.8 % Normal 0.2-2.0 [facility] Comment on above: Performed By: #### CBC #### [facility] [address] [place] [address] [address] Shelby Quiñonez EO # 0.2 103/ul Normal 0.0-0.7 [facility] Comment on above: Performed By: #### CBC #### [facility] [address] [place] [address] [address] Shleby Quiñonez Eosinophils/100 WBC (Bld) 2.4 % Normal 0.9-7.0 [facility] Comment on above: Performed By: #### CBC #### [facility] [address] [place] [address] Dr. Shelby Quiñonez Erythrocyte distribution width (RBC) [Ratio] 13.5 % Normal 11.0-15.0 [facility] Comment on above: Performed By: #### CBC #### [facility] [address] [place] [address] Dr. Shelby Quiñonez Hematocrit (Bld) [Volume fraction] 43.2 % Normal 42.0-54.0 [facility] Comment on above: Performed By: #### CBC #### [facility] [address] [place] [address] Dr. Shelby Quiñonez Hemoglobin (Bld) [Mass/Vol] 13.9 g/dL Critically low 14.0-18.0 [facility] Comment on above: Performed By: #### CBC #### [facility] [address] [place] [address] Dr. Shelby Quiñonez IG # 0.02 10e3/ul Normal 0.00-0.03 [facility] Comment on above: Performed By: #### CBC #### [facility] [address] [place] [address] Dr. Shelby Quiñonez IG % 0.3 % Normal 0.0-0.5 [facility] Comment on above: Performed By: #### CBC #### [facility] [address] [place] [address] Dr. Shelby Quiñonez LYMPH # 2.5 103/ul Normal 1.2-3.8 [facility] Comment on above: Performed By: #### CBC #### [facility] [address] [place] [address] Dr. Shelby Quiñonez Lymphocytes/100 WBC (Bld) 34.0 % Normal 20.5-60.0 [facility] Comment on above: Performed By: #### CBC #### [facility] [address] [place] [address] Dr. Shelby Quiñonez MANUAL DIFF REQ NO Normal [facility] Comment on above: Performed By: #### CBC #### [facility] [address] [place] [address] [address] Shelby Quiñonez MCH (RBC) [Entitic mass] 30.6 pg Normal 25.9-34.0 [facility] Comment on above: Performed By: #### CBC #### [facility] [address] [place] [address] Dr. Shelby Quiñonez MCHC (RBC) [Mass/Vol] 32.2 g/dL Normal 29.9-35.2 [facility] Comment on above: Performed By: #### CBC #### [facility] [address] [place] [address] Dr. Shelby Quiñonez MCV (RBC) [Entitic vol] 95.2 fL Critically high 80.0-94.0 [facility] Comment on above: Performed By: #### CBC #### [facility] [address] [place] [address] Dr. Shelby Quiñonez MONO # 0.6 103/ul Normal 0.3-0.8 [facility] Comment on above: Performed By: #### CBC #### [facility] [address] [place] [address] Dr. Shelby Quiñonez Monocytes/100 WBC (Bld) 8.6 % Normal 1.7-12.0 [facility] Comment on above: Performed By: #### CBC #### [facility] [address] [place] [address] Dr. Shelby Quiñonez NEUT # 3.9 103/ul Normal 1.4-6.5 [facility] Comment on above: Performed By: #### CBC #### [facility] [address] [place] [address] Dr. Shelby Quiñonez Neutrophils/100 WBC (Bld) 53.9 % Normal 43.0-75.0 [facility] Comment on above: Performed By: #### CBC #### [facility] [address] [place] [address] Dr. Shelby Quiñonez Platelet mean volume (Bld) [Entitic vol] 10.1 fL Normal 9.5-13.5 [facility] Comment on above: Performed By: #### CBC #### [facility] [address] [place] [address] [address] Shelby Quiñonez PLT 233 103/ul Normal 150-450 [facility] Comment on above: Performed By: #### CBC #### [facility] [address] [place] [address] Dr. Shelby Quiñonez RBC 4.54 106/ul Critically low 4.70-6.10 [facility] Comment on above: Performed By: #### CBC #### [facility] [address] [place] [address] [address] Shelby Quiñonez WBC 7.2 103/ul Normal 4.0-11.0 [facility] Comment on above: Performed By: #### CBC #### [facility] [address] [place] [address] Dr. Shelby Quiñonez LIPID PROFILEon 07-20-2021 CHOL-HDL RATIO NORM SEE BELOW Normal [facility] Comment on above: Result Comment: 3.3 - 4.4 LOW RISK 4.4 - 7.1 AVERAGE RISK 7.1 - 11.0 MODERATE RISK >11.0 HIGH RISK Performed By: #### C MP, LIPID #### [facility] [address] [place] [address] Dr. Shelby Quiñonez Cholesterol [Mass/Vol] 130 mg/dL Normal <=200 [facility] Comment on above: Performed By: #### CMP, LIPID #### [facility] [address] [place] [address] Dr. Shelby Quiñonez Cholesterol in HDL [Mass/Vol] 43 mg/dL Normal [facility] Comment on above: Performed By: #### CMP, LIPID #### [facility] [address] [place] [address] Dr. Shelby Quiñonez Cholesterol in LDL [Mass/Vol] 66.6 mg/dL Normal [facility] Comment on above: Performed By: #### CMP, LIPID #### [facility] [address] [place] [address] Dr. Shelby Quiñonez Cholesterol.tota l/Cholesterol in HDL [Mass ratio] 3.0 {ratio} Normal [facility] Comment on above: Performed By: #### CMP, LIPID #### [facility] [address] [place] [address] Dr. Shelby Quiñonez HDL NORMAL > or = 60 mg/dl - LO W CARDIOVASCULAR RISK <40 mg/dl - HIGH CARDIOVASCULAR RISK Normal [facility] Comment on above: Performed By: #### CMP, LIPID #### [facility] [address] [place] [address] Dr. Shelby Quiñonez LDL CALC NORMAL SEE BELOW Normal [facility] Comment on above: Result Comment: <100 mg/dl OPTIMAL 100 - 129 mg/dl NEAR OR ABOVE OPTIMAL 130 - 159 mg/dl BORDERLINE HIGH 160 - 189 mg/dl HIGH >190 mg/dl VERY HIGH Performed By: #### C MP, LIPID #### [facility] [address] [place] [address] Dr. Shelby Quiñonez Triglyceride [Mass/Vol] 102 mg/dL Normal <=150 [facility] Comment on above: Performed By: #### CMP, LIPID #### [facility] [address] [place] [address] Dr. Shelby Quiñonez VLDL CALC 20.4 mg/dL Normal [facility] Comment on above: Performed By: #### CMP, LIPID #### [facility] [address] [place] [address] Dr. Shelby Quiñonez PROF 14(COMP METB)on 022 Albumin [Mass/Vol] 3.6 g/dL Normal 3.5-5.0 [facility] Comment on above: Performed By: #### CMP, LIPID #### [facility] [address] [place] [address] Dr. Shelby Quiñonez Albumin/Globulin [Mass ratio] 1.1 {ratio} Normal [facility] Comment on above: Performed By: #### CMP, LIPID #### [facility] [address] [place] [address] Dr. Shelby Quiñonez ALP [Catalytic activity/Vol] 72 U/L Normal 38-126 [facility] Comment on above: Performed By: #### CMP, LIPID #### [facility] [address] [place] [address] Dr. Shelby Quiñonez ALT [Catalytic activity/Vol] 52 U/L Normal 21-72 [facility] Comment on above: Performed By: #### CMP, LIPID #### [facility] [address] [place] [address] [address] Shelby Quiñonez Anion gap [Moles/Vol] 10.9 mmol/L Normal [facility] Comment on above: Performed By: #### CMP, LIPID #### [facility] [address] [place] [address] [address] Shelby Quiñonez AST [Catalytic activity/Vol] 24 U/L Normal 17-59 [facility] Comment on above: Performed By: #### CMP, LIPID #### [facility] [address] [place] [address] [address] Shelby Quiñonez Bilirubin [Mass/Vol] 1.5 mg/dL Critically high 0.2-1.3 [facility] Comment on above: Performed By: #### CMP, LIPID #### [facility] [address] [place] [address] [address] Shelby Quiñonez Calcium [Mass/Vol] 9.0 mg/dL Normal 8.4-10.2 [facility] Comment on above: Performed By: #### CMP, LIPID #### [facility] [address] [place] [address] Dr. Shelby Quiñonez Chloride [Moles/Vol] 104 mmol/L Normal 98-107 [facility] Comment on above: Performed By: #### CMP, LIPID #### [facility] [address] [place] [address] [address] Shelby Quiñonez CO2 [Moles/Vol] 28.5 mmol/L Normal 22.0-30.0 [facility] Comment on above: Performed By: #### CMP, LIPID #### [facility] [address] [place] [address] [address] Shelby Quiñonez Creatinine [Mass/Vol] 1.16 mg/dL Normal 0.66-1.25 [facility] Comment on above: Performed By: #### CMP, LIPID #### [facility] [address] [place] [address] [address] Shelby Quiñonez EGFR-AF NIUEAN >60 Normal >=60 [facility] Comment on above: Performed By: #### CMP, LIPID #### [facility] [address] [place] [address] [address] Shelby Quiñonez EGFR-NON AF NIUEAN >60 Normal >=60 [facility] Comment on above: Performed By: #### CMP, LIPID #### [facility] [address] [address] [address] Shelby Quiñonez Globulin (S) [Mass/Vol] 3.3 g/dL Normal [facility] Comment on above: Performed By: #### CMP, LIPID #### [facility] [address] [place] [address] [address] Shelby Quiñonez Glucose [Mass/Vol] 98 mg/dL Normal 74-106 [facility] Comment on above: Performed By: #### CMP, LIPID #### [facility] [address] [place] [address] [address] Shelby Quiñonez Potassium [Moles/Vol] 4.4 mmol/L Normal 3.4-5.0 [facility] Comment on above: Performed By: #### CMP, LIPID #### [facility] [address] [place] [address] Dr. Shelby Quiñonez Protein [Mass/Vol] 6.9 g/dL Normal 6.1-8.2 [facility] Comment on above: Performed By: #### CMP, LIPID #### [facility] [address] [place] [address] Dr. Shelby Quiñonez Sodium [Moles/Vol] 139 mmol/L Normal 137-145 [facility] Comment on above: Performed By: #### CMP, LIPID #### [facility] [address] [place] [address] [address] Shelby Quiñonez Urea nitrogen [Mass/Vol] 15.0 mg/dL Normal 9.0-20.0 [facility] Comment on above: Performed By: #### CMP, LIPID #### [facility] [address] [place] [address] [address] Shelby Quiñonez Urea nitrogen/Creatin ine [Mass ratio] 12.9 mg/mg Normal [facility] Comment on above: Performed By: #### CMP, LIPID #### [facility] [address] [place], [place] [address] Dr. Shelby Quiñonez Cardiovascular Lab Reporton 05-13-2017 Cardiovascular Lab Report [facility] Patient Name: Oni Garay [facility] MR #: [id number] Physician: Taco Kathleen M.D.Medicine Service Date: 05/12/2017Division of Birthdate: 6Cardiology Room #: CCAd[facility] [place], [place] [address]Jptgw Fax Cardiovascular Laboratory ReportINDICATION: Oni Garay is a 71-year-old man who was recently [...] signed a consent. 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 Theright wrist area was prepped and draped in usual fashion. Shad's test wasfavorable. Access in the right radial artery was obtained usingmicropuncture technique. A 6-[place] x 11 cm Hydrophilic sheath wasadvanced. Verapamil was given through the sheath and heparin wasadministered intravenously. Bilateral selective coronary angiography wasthen performed using 6-[place]ayan JL3.5 and JR5 diagnostic catheters.Catheters were removed.Therapeutic ACT was confirmed during the procedure. A 6-[place] XB3.0guiding catheter was advanced and used to engage the left main coronaryostium. A [employer] FFR wire was advanced and equalization of [...] restenosis in the proximal LAD and patent [id number] LAD stent.4. A 30% to 40% stenosis in the mid circumflex vessel.RECOMMENDATIONS:1. Intensified medical therapy.2. Follow up in Cardiology Clinic.Electronically Signed by:Taco Ball M.D. 05/17/2017 12:55 P Taco Ball M.D.Date Dict: 05/12/2017/01:38 P/Taco Ball M.D.Date Trans: 05/13/2017 09:25 A/[id number]: Ghulam Holm M.D. [address] [place] [id number] [place] [address] Vital Signs Date Time Vital Sign Value Performing Clinician Dayo damico 10-13-2023 11:18-0400 Blood Pressure Location Julius WOLFE [facility] 10-13-2023 11:18-0400 Diastolic blood pressure 79 mm[Hg] Julius WOLFE [facility] 10-13-2023 11:18-0400 Heart rate 84 /min Julius WOLFE [facility] 10-13-2023 11:18-0400 Respiratory rate 16 /min Julius WOLFE [facility] 10-13-2023 11:18-0400 Systolic blood pressure 135 mm[Hg] Julius WOLFE [facility] 10-11-2022 11:06-0400 Blood Pressure Location Julius WOLFE [facility] 10-11-2022 11:06-0400 Diastolic blood pressure 86 mm[Hg] Julius WOLFE [facility] 10-11-2022 11:06-0400 Heart rate 70 /min Julius WOLFE [facility] 10-11-2022 11:06-0400 Respiratory rate 16 /min Julius WOLFE [facility] 10-11-2022 11:06-0400 Systolic blood pressure 137 mm[Hg] Julius WOLFE [facility] Encounters Encounter Date Encounter Type Care Provider Facility Start: 11-08-2024 End: 11-08-2024 ambulatory Julius WOLFE Facility:[facility] Start: 10-13-2023 End: 10-13-2023 Patient encounter procedure Julius WOLFE [facility] Start: 12-20-2022 End: 12-20-2022 ambulatory [facility] Start: 10-11-2022 End: 10-11-2022 Patient encounter procedure Julius WOLFE [facility] Start: 09-24-2022 End: 09-24-2022 Patient encounter procedure Julius WOLFE [facility] Start: 08-15-2022 End: 08-15-2022 ambulatory Bruce Yarbrough Facility:[facility] Start: 07-26-2022 End: 07-26-2022 Patient encounter procedure Julius WOLFE [facility] Start: 09-12-2021 End: 09-13-[address] GURVINDER DE LOS SANTOS Facility:[facility] Start: 07-20-2021 End: 07-21-2021 ambulatory KATARZYNA RODRIGUEZ Facility:[facility] Start: 02-23-2021 ambulatory KATARZYNA RODRIGUEZ Facility:[facility] Start: 01-12-2021 End: 01-13-[address] JULIUS WOLFE Facility:[facility] Start: 05-12-2017 End: 05-13-2017 Ambulatory PROVIDER UNKNOWN Facility:[facility] Start: 05-06-2017 End: 05-07-2017 Ambulatory DEFAULT PHYSICIAN Facility:[facility] Procedures Date Procedure Procedure Detail Performing Clinician Start: 09-24-2022 Transrectal biopsy o f prostate using ultrasound guidance Julius WOLFE Start: 01-12-[address] GURVINDER STUART Comment on above: Performed By: #### P SAD #### [facility] [address] [address] Estefany Carvajal Start: 09-07-2020 Transurethral prostatectomy Julius [...] Immunizations Immunization Date Immunization Notes Care Provider Anish badillo 04-07-2023 influenza virus vaccine, unspecified formulation Julius WOLFE [facility] 11-08-2022 SARS-CoV-2 (COVID-19 ) [id number] Julius WOLFE [facility] 03-27-2022 SARS-CoV-2 (COVID-19 ) [id number] Julius WOLFE [facility] 03-26-2022 influenza virus vaccine, unspecified formulation Julius WOLFE [facility] 10-12-2021 SARS-CoV-2 mRNA (gzrcrwddoxo-jjrq-npcpq se) vaccine Juliusmitzi WOLFE [facility] 04-09-2021 SARS-CoV-2 (COVID-19 ) mRNA BNT-162b2 vax Julius WOLFE [facility] 03-29-2021 influenza virus vaccine, unspecified formulation Juliusmitzi WOLFE [facility] 03-14-2021 influenza virus vaccine, unspecified formulation Julius WOLFE [facility] 09-08-2020 SARS-CoV-2 (COVID-19 ) mRNA BNT-162b2 vax Juliusmitzi WOLFE [facility] 08-18-2020 SARS-CoV-2 (COVID-19 ) mRNA [id number] vax Juliusmitzi WOLFE [facility] 04-07-2020 influenza virus vaccine, unspecified formulation Julius WOLFE [facility] Payers Date Payer Category Payer Medicare [id number] 2022 Self-pay 1958 Medicare [id number] 1958 Private Health Insurance [id number] 1958 Self-pay [id number] 1945 Unknown [id number] 2.16.84 [id number] 1945 Unknown [id number] 2.16.84 [id number] 1945 Unknown [id number] 2.16.84 [id number] 1945 Unknown [id number] 2.16.84 [id number] 1945 Unknown [id number] 2.16.8 [id number] Medicare [id number] Unknown Unknown [id number] 2.16.8 [id number] Social History Date Type Detail Facility Start: 07-26-2022 Tobacco smoking status Ex-smoker (fi nding) [facility] Comment on above: Quit in 1996 Sex Assigned At Male [facility] Functional Status Date Assessment Result Facility 10-13-2023 Functional Status N/A [facility] 10-11-2022 Functional Status N/A [facility] 09-19-2022 Functional Status N/A [facility] 07-26-2022 Functional Status N/A [facility] Clinical Notes 07-26-2022 to 11-08-2024 Note Date & Type Note Facility 11-08-2024 Note Patient Education Oncology Prostate Cancer Screening Prostate [...] recommendations. In general, screening is recommended if: ??? You are age 50 to 70 and [...] have a 10- to 15-year life expectancy. ??? You are younger than age 50, and [...] In general, screening is not recommended if: ??? You are younger than age 40. ??? You are between the ages of 40 and 49 and you have no risk factors. ??? You are 70 years of age or [...] high PSA levels may be caused by: ??? Prostate cancer. ??? An enlarged prostate that is not caused by cancer (benign prostatic hyperplasia, or BPH). This condition is very common in older men. ??? A prostate gland infection (prostatitis) or urinary tract infection. ??? Certain medicines such as male hormones (like [...] you may need more tests, such as: ??? A physical exam to check the size of your prostate gland, if not done as part of screening. ??? Blood and imaging tests. ??? A procedure to remove tissue samples from your prostate gland for testing (biopsy). This is the only way to know for certain if you have prostate cancer. What are the benefits of prostate cancer screening? Screening can help to identify cancer at an early stage, before symptoms start and when the cancer can be treated more easily. ??? There is a small chance that screening [...] Questions to ask your health care provider ??? When should I start prostate cancer screening? What is my risk for prostate cancer? How often do I need screening? What type of screening tests do I need? How do I get my test results? What do my results mean? Do I need treatment? Where to find more information ??? The [place] [employer]: www.cancer.org ??? [place] [employer] Association: www.auanet.org Contact a health care provider if: ??? You have difficulty urinating. ??? You have pain when you urinate or ejaculate. ??? You have blood in your urine or semen. ??? You have pain in your back or in the area of your prostate. Summary ??? Prostate cancer is a common type of cancer in men. The prostate gland (more content not included)... [facility] 10-13-2023 Hospital Discharge instructions Patient Education 10/13/2023 [...] treatment? Where to find more information The [place] [employer]: www.cancer.org [place] U[employer] Association: www.auanet.org Contact a health care [...] provider. Document Revised: 12/24/2021 Document Reviewed: 12/24/2021 [employer] Patient Education 2022 [employer]. Follow Up Care 10/11/2022 11:58:00 With:STONE BOSWELL, Julius Dumont, URL Address: [facility] [address] [place] [phone] When: Unknown Comments:1 yr w/ PSA [facility] 12-20-2022 Note Cardiology Clinic No te Subjective [...] post PCI x2 to LAD 2001, RCA w2wiqfu 2011, x2 stents in 2012, atrial tachycardia, [...] restenosis in the proximal LAD and patent znq-nh-spwywe LAD stent. 4. A 30% to 40% stenosis in the mid circumflex vessel. Echo 09/2014 Global left ventricular systolic function is normal. Grade 2, moderate diastolic dysfunction (pseudonormalized LV filling alejandro (more content not included)... [facility] 12-20-2022 Note Patient here for 1 y [...] All other systems reviewed and are negative. [facility] 10-11-2022 Hospital Discharge instructions Patient Education 10/11/2022 [...] one of these risk factors: ?Being of -Lao descent. ?Having a family history of prostate [...] you: Are older than age 55. Are -Lao. Have a father, brother, or uncle who [...] 04/10/2018 Document Revised: 06/12/2018 Document Reviewed: 04/10/2018 [employer] Patient Education 2019 [employer]. Follow Up Care 09/04/2022 11:13:56 With:STONE BOSWELL, Julius Dumont, URL Address: [address] [place] [address]- When: Unknown [facility] 09-24-2022 Hospital Discharge instructions Patient [...] for your post-operative appointment in 1-2 weeks [phone] or [phone] Follow Up Care 09/04/2022 11:10:32 With:Julius WOLFE Address: [facility] [address] [place] [address]- [facility] (1) When: Unknown Comments:Keep scheduled appointment [facility] 07-26-2022 Hospital Discharge instructions Patient Education 07/26/2022 [...] one of these risk factors: ?Being of -Lao descent. ?Having a family history of prostate [...] you: Are older than age 55. Are -Lao. Have a father, brother, or uncle who [...] 04/10/2018 Document Revised: 06/12/2018 Document Reviewed: 04/10/2018 [employer] Patient Education 2020 [employer]. Follow Up Care 07/23/2021 13:25:04 With:STONE BOSWELL, Julius Dumont, URL Address: [address] [place] [address]- When: Unknown [facility] Evaluation + Plan note No data available for this section [facility] Evaluation + Plan note Future Appointments Appointment Date:10/11/2022 10:30:00 AM Scheduled Provider:Julius WOLFE MD Location:[facility] Appointment Type:URO Office Visit Diagnostic Tests PendingProstate Histology ([facility]) 09/24/22 [facility] Evaluation + Plan note Future Appointments Appointment Date:10/13/2023 10:30:00 AM Scheduled Provider:Julius WOLFE MD Location:[facility] Appointment Type:URO Office Visit Diagnostic Tests PendingPSA Total 08/14/23 [facility] Evaluation + Plan note Future Appointments Appointment Date:10/15/2024 11:00:00 AM Scheduled Provider:Julius WOLFE MD Location:[facility] Appointment Type:URO Office Visit Diagnostic Tests PendingPSA Total 10/13/23 [facility] Progress note No data available for this section [facility] Summary Purpose Family History No [...] section and content) DATE CREATED AUTHOR 01/06/2018 [facility] DATE CREATED AUTHOR AUTHOR'S ORGANIZ ATION 09/15/2021 [facility] DATE CREATED AUTHOR AUTHOR'S ORGANIZ ATION 08/16/2022 [facility] DATE CREATED AUTHOR AUTHOR'S ORGANIZ ATION 12/22/2022 [facility] DATE CREATED AUTHOR AUTHOR'S ORGANIZ ATION 11/09/2024 [facility] Patient Care team informatio n (unrecognized section and content) Personnel Name: BRUCE YARBROUGH DO Address: Address: [address] [place] [address] Personnel Name: BRUCE YARBROUGH DO Address: Address: [address] [place] [address] Personnel Name: BRUCE YARBROUGH DO Address: Address: [address] [place] [address] Personnel Name: BRUCE YARBROUGH DO Address: Address: [address] [facility] [address] [place], [place] [address] FOR RECORDS PERTAINING TO PATIENTS WHO ARE [...] BE BASED ON THE PRIMARY CLINICAL RECORDS. [facility]. provides no warranty or guarantee of the accuracy or completeness of information in this document.
[2024-12-14 11:38] LABS: Bilirubin Urine NEGATIVE (NEGATIVE); Blood Urine NEGATIVE (NEGATIVE); Clarity Urine CLEAR (CLEAR); Color Urine LT. YELLOW (YELLOW); Glucose Urine UA NEGATIVE (NEGATIVE); Ketones Urine NEGATIVE (NEGATIVE); Leukocyte Esterase Urine NEGATIVE (NEGATIVE); Nitrite Urine NEGATIVE (NEGATIVE); Protein Urine NEGATIVE (NEG/TRACE); Specific Gravity Urine <=1.005 (1.005-1.025); Urobilinogen Urine 0.2 EU/dL (0.2-1.0)
[2024-12-14 11:44] LABS: Basophils Absolute Auto 0.1 10^3/uL (0.0-0.1); Basophils Percent Auto 0.9 % (0.2-2.0); Eosinophils Absolute Auto 0.2 10^3/uL (0.0-0.7); Eosinophils Percent Auto 2.2 % (0.9-7.0); Hematocrit 43.4 % (42.0-54.0); Hemoglobin 14.6 g/dL (14.0-18.0); Immature Granulocytes Abs Auto 0.03 10^3/uL (0.00-0.03); Immature Granulocytes Pct Auto 0.4 % (0.0-0.5); Lymphocytes Absolute Auto 2.1 10^3/uL (1.2-3.8); Lymphocytes Percent Auto 30.6 % (20.5-60.0); Mean Corpuscular HGB Conc 33.6 g/dL (29.9-35.2); Mean Corpuscular Hemoglobin 31.3 pg (25.9-34.0); Mean Corpuscular Volume 92.9 fL (80.0-94.0); Mean Platelet Volume 9.8 fL (9.5-13.5); Monocytes Absolute Auto 0.7 10^3/uL (0.3-0.8); Monocytes Percent Auto 9.9 % (1.7-12.0); Neutrophils Absolute Auto 3.9 10^3/uL (1.4-6.5); Platelet Count 239 10^3/uL (150-450); Red Blood Count 4.67 10^6/uL (4.70-6.10); Red Cell Distribution Width 13.6 % (11.0-15.0)
[2024-12-14 12:09] LABS: Microalbum Creatinine Ratio Ur 40.2 mg/g (0.0-29.9); Microalbumin Urine Random 1.6 mg/dL (<=30.0)
[2024-12-14 12:50] LABS: Alanine Aminotransferase 43 U/L (16-63); Albumin Level 3.6 g/dL (3.4-5.0); Alkaline Phosphatase 91 U/L (46-116); Anion Gap 12.4; Aspartate Amino Transferase 23 U/L (15-37); BUN Creatinine Ratio 16.4; Bilirubin Total 1.6 mg/dL (0.2-1.0); Calcium 8.8 mg/dL (8.5-10.1); Carbon Dioxide 28.5 mmol/L (21.0-32.0); Chloride 100 mmol/L (98-107); Chol HDL Ratio 2.9; Cholesterol 109 mg/dL (<=200); Estimated GFR (African America >60 (>=60 mL/min/1.73m^2); Estimated GFR (Non-African Ame >60 (>=60 mL/min/1.73m^2); Globulin 3.5 g/dL; Glucose 96 mg/dL (74-106); HDL Cholesterol 38 mg/dL (40-60); Potassium 3.9 mmol/L (3.5-5.1); Sodium 137 mmol/L (136-145); Total Protein 7.1 g/dL (6.4-8.2); Triglycerides 93 mg/dL (<=150); VLDL CHOLESTEROL 18.6 mg/dL
== END 2024-12-14 11:03 | disposition home or self-care (01) ==
LOC: US 11:02
PROVIDERS: PCP Internal Medicine; Visit Provider Internal Medicine
DX: I25.10 Atherosclerotic heart disease of native coronary artery without angina pectoris (principal); E78.00 Pure hypercholesterolemia, unspecified; I10 Essential (primary) hypertension; R73.01 Impaired fasting glucose; R82.90 Unspecified abnormal findings in urine; R10.9 Unspecified abdominal pain; N32.3 Diverticulum of bladder
CPT/HCPCS: 36415; 76775; 80053; 80061; 81003; 82043; 82570

== ENCOUNTER 2025-01-04 08:14 | Outpatient (OUT) | payer MEDICARE, OTHER, SELFPAY ==
--- OUTSIDE RECORDS SUMMARY | 2024-12-28 13:15 | XMS_ITS | Encounter Summary ---
Author Organization [facility] Address [address] [place] [address] Care Team Providers Care Respiratory Care Instructor Name Role Phone Bruce Yarbrough DO Primary Care Provider [phone] Encounter Details Date Type Department Care Team (Late st Contact Info) Description 12/28/2024 1:15 PM EDT Office Visit [facility] [address] [place] [phone] Royal Cueto MD [address] [facility] [address] [facility] [place] [address] Coronary artery disease, unspecified vessel or lesion type, unspecified whether angina present, unspecified whether round [place] or transplanted heart (Primary Dx); Silent myocardial ischemia Social History Tobacco Use Types Packs/Day Years Used Date Smoking Tobacco: Former Cigarettes Smokeless Tobacco: Never Alcohol Use Standard Drinks/Week Comments Yes 0 (1 standard drink = 0.6 oz pur e alcohol) occasional [place] Safety & Environment Answer Date Rec orded Fear of Current or Ex-Partner Not on file Emotionally Abused Not on file 09/04/2023 Physically Abused Not on file 09/04/2023 Sexually Abused Not on file 09/04/2023 Physically or Sexually Abused Not on file Sex and Gender Information Value Date Recorded Sex Assigned at Not on file Legal Sex Male 9:49 PM EDT Gender Identity Not on file Sexual Orientation Not on file documented as of this encounter Last Filed Vital Signs Vital Sign Reading Time Taken Comments Blood Pressure 127/73 12/28/2024 1:27 PM EDT Pulse 84 12/28/2024 1:27 PM EDT Temperature - - Respiratory Rate - - Oxygen Saturation 95% 12/28/2024 1:27 PM EDT Inhaled Oxygen Concentration - - Weight 92.5 kg (204 lb) 12/28/2024 1:27 PM EDT Height 175.3 cm (5' 9 ) 12/28/2024 1:27 PM EDT Body Mass Index 30.13 12/28/2024 1:27 PM EDT documented in this encounter Progress Notes * Royal Cueto MD - 12/28/2024 1:15 PM EDT Images from the original note were not included. Cardiology Clinic Note Chief Complaint: Patient here for a 1 year follow up. Patient states he still feels fluttering other thompson nothing new. Patient states he recently had a complete physical with Dr. Yarbrough and a renal US due to lower back pain. HPI Mr Batista is a 77-year-old coronary artery disease status post PCI x2 to LAD 2001, RCA p3bozrk 2011, x2 stents in 2012, atrial tachycardia, [...] week, lasting about few seconds. Echocardiogram in 2014 showed normal LV systolic function with no valvular dysfunction. Update Staying pretty active doing yard work and remodeling the house No chest pain or shortness of breathing Occasional fluttering occurring spontaneously lasting about 30 seconds Has arthritis which is somewhat bothersome Blood pressure runs 130s/70s Update 12/28/2024: Patient is doing fairly well. He still has intermittent palpitations that last for a few seconds and resolve. He has a flushing sensation but denies lightheadedness or dizziness. He denies chest pain per se. He has no significant shortness of breath. He has not had an ischemic workup since 2019. Review of Systems Cardiovascular: Positive for irregular heartbeat and palpitations. Patient Active Problem List Diagnosis Abnormal results of cardiovascular function studies Anticoagulant long-term use Atrial tachycardia Bladder wall thickening Benign localized hyperplasia of prostate with urinary obstruction and lower urinary tract symptoms BPH with urinary obstruction Chest pain Chronic GERD ASHD (arteriosclerotic heart disease) Ex-smoker Elevated PSA Elevated fasting glucose Coronary atherosclerosis Coronary artery disease Family history of malignant neoplasm of prostate Gross hematuria HTN (hypertension) H/O: glaucoma Essential hypertension Hyperlipidemia Irreducible right inguinal hernia Osteoarthritis Palpitations IFG (impaired fasting glucose) Nicotine addiction Pulmonary nodule Family History Problem Relation Name Age of Onset Cancer Other Hypertension Other Hyperlipidemia Other Social History Tobacco Use Smoking status: Former Types: Cigarettes Smokeless tobacco: Never Substance Use Topics Alcohol use: Yes Comment: occasional Objective Visit Vitals Smoking Status Former BP 127/73 (BP Location: Right arm, Patient Position: Sitting) Pulse 84 Ht 1.753 m (5' 9 ) Wt 92.5 kg (204 lb) SpO2 95% BMI 30.13 kg/m?? Physical Exam General: Awake, alert, NAD Pulm: [...] TWICE DAILY, Disp: 180 tablet, Rfl: 3 carvedilol (Coreg) 25 mg tablet, TAKE 1 [...] BY MOUTH TWICE DAILY, Disp: 180 tablet, Rfl:3 Recent Labs 07/21/2021 CBC: WBC 7.2, hemoglobin [...] restenosis in the proximal LAD and patent oiq-ft-lpywdw LAD stent. 4. A 30% to 40% stenosis in the mid circumflex vessel. Echo 09/2014 Global left ventricular systolic function is normal. Grade 2, moderate diastolic dysfunction (pseudonormalized LV filling pattern). The left atrium is mildly enlarged. The mitral valve is thickened with normal mobility. There is a minimal pericardial effusion. No significant valvular abnormalities Cath done at [facility] 09/01/14. Dr. Weaver, showed mild single vessel diseas with patent stents Labs 11/2023: Triglycerides 76, total cholesterol 130, LDL 72.8, HDL 42 Assessment Coronary artery disease 2. Hypertension 3. Hyperlipidemia 4. Palpitations - Brief fluttering sensation occurring for 30 seconds at a time, overall stable. Continue carvedilol as noted above. 5. Aortic root dilatation; -Noted as mild in prior echoes, most recent echo in September 2021 revealed normal diameter and appearance of the aortic root. No need for surveillance. Plan He is recommended long-term DAPT therapy given history of multiple PCI's. Tolerating without bleeding issues. Continue aspirin/Plavix, carvedilol 25 mg twice daily, Ranexa 500 mg twice daily, and benazepril 20 mg twice daily. Given the duration of time since his last ischemic workup, and residual mild to moderate disease when last cath, I recommended a Lexiscan pharmacological stress test Aggressive cardiovascular risk factor modification If his stress test is nonischemic, he can follow-up in a year Royal Cueto MD, MPH, [facility], [facility], [facility] Interventional Cardiology Pager Email: [email or web address] documented in this encounter Plan of Treatment Scheduled Orders Name Type Priority Associated Diagnoses Orde r Schedule Lexiscan Stress Myocardial Perfusion Imaging Cardiac Services Routine Coronary artery disease, unspecified vessel or lesion type, unspecified whether angina present, unspecified whether round [place] or transplanted heart Silent myocardial ischemia Expected: 12/28/2024 (Approximate), Expires: 12/28/2026 documented as of this encounter Visit Diagnoses Diagnosis Coronary artery disease, unspecified vessel or lesion type, unspecified whether angina present, unspecified whether [place] or transplanted heart- Primary Silent myocardial ischemia Other specified forms of chronic ischemic heart disease documented in this encounter Care Teams Respiratory Care Instructor Relationship Specialty Start Date End Date Bruce Yarbrough DO [address] [place] [id number] PCP - General 12/19/22 documented as of this encounter
--- NOTE | 2025-01-04 08:00 | NM_ITS ---
Patient Name: KAELYN GARAY MR#: [id number] : 1945 Exam Date: 01/04/2025 Ordering Doctor: DR GURVINDER DE LOS SANTOS M.D. RADIOLOGY REPORT PROCEDURE: NM YOJANA PERF SPECT REST STR COMPARISON: None. INDICATIONS: CORONARY ARTERY DISEASE, CHEST TIGHTNESS, PALPITATIONS TECHNIQUE: Exam Description: Stress/Rest one day protocol gated SPECT Rest Imagin.0 mCi Tc-99m Cardiolite IV on 01/04/2025 Stress Imaging 30.9 mCi Tc-99m Cardiolite IV on 01/04/2025 Exercise Protocol: 0.4 mg Lexiscan given IV Heart Rate (bpm): Rest: 64 Max: 104 PMHR: 73 Blood Pressure: Rest: 132/84 Max: 132/84 Symptoms: Rest and peak stress ECG findings were pending and the EKG portion of the study was pending per attending physician [facility] . For more details please see separate cardiac stress test report. FINDINGS: QUALITY OF STUDY: Good PERFUSION DEFECT: None LOCATION: SIZE: SEVERITY: TYPE: WALL MOTION: Normal LV SIZE: 70 mL. TID / TCD: 0.9 LVEF: Calculated EF 84%. SUMMARY: Myocardial perfusion imaging study CONCLUSION: Normal myocardial perfusion stress test without evidence of ischemia or infarction Normal left ventricular systolic function, ejection fraction 84% No evidence of transient ischemic dilatation, TID 0.9 EKG portion of stress test is reported separately Dictated by: Juan Diego Navas MD on 01/04/2025 at 15:55 Approved by: Juan Diego Navas MD on 01/04/2025 at 15:58
--- OUTSIDE RECORDS SUMMARY | 2025-01-04 08:22 | XMS_ITS | Encounter Summary ---
Author Organization [facility] Address [address] [place] [address] Care Team Providers Care Journalism Instructor Name Role Phone Bruce Yarbrough DO Primary Care Provider [phone] Reason for Visit * Reason Comments Med Refill Encounter Details Date Type Department Care Team (Late st Contact Info) Description 08/02/2022 Refill [facility] [address] [place] [phone] Royal Cueto MD [address] [facility] [address] [facility] [place] [phone] Benign hypertensive heart disease without congestive heart failure Social History Tobacco Use Types Packs/Day Years Used Date Smoking Tobacco: Never Assessed Sex and Gender Information Value Date Recorded Sex Assigned at Not on file Legal Sex Male 9:49 PM EDT Gender Identity Not on file Sexual Orientation Not on file documented as of this encounter Plan of Treatment Not on file documented as of this encounter Visit Diagnoses Diagnosis Benign hypertensive heart disease without congestive heart failure Benign hypertensive heart disease without heart failure documented in this encounter Care Teams Journalism Instructor Relationship Specialty Start Date End Date Bruce Yarbrough DO [address] [place] [address] [place] [phone] PCP - General 12/19/22 documented as of this encounter
--- OUTSIDE RECORDS SUMMARY | 2025-01-04 08:22 | XMS_ITS | Referral Summary ---
Author Organization [facility] Address [address] [place] [address] Care Team Providers Care Motion Picture Set Worker Name Role Phone Bruce Yarbrough DO Primary Care Provider [phone] Encounters Date Type Department Care Team Description 12/28/2024 1:15 PM EDT Office Visit [facility] [address] [place] [phone] Royal Cueto MD Coronary artery disease, unspecified vessel or lesion type, unspecified whether angina present, unspecified whether [place] or transplanted heart (Primary Dx); Silent myocardial ischemia 10/28/2024 Refill [facility] [address] [place] [address] Royal Cueto MD Benign hypertensive heart disease without congestive heart failure from Last 3 Months Allergies No known active allergies Medications aspirin 81 mg EC tablet in the morning. 07/23/19 22 Active nitroglycerin (Nitrostat) 0.4 mg SL tablet nitroglycerin 0.4 mg sublingual tablet Active carvedilol (Coreg) 25 mg tabletIndication s:Essential hypertension TAKE 1 TABLET BY MOUTH TWICE DAILY 180 tablet 3 04/14/20 24 Active clopidogrel (Plavix) 75 mg tabletIndication s:Coronary artery disease due to lipid rich plaque TAKE 1 TABLET BY MOUTH DAILY 90 tablet 3 04/14/20 24 Active atorvastatin (Lipitor) 40 mg tabletIndication s:Coronary artery disease due to lipid rich plaque TAKE 1 TABLET BY MOUTH DAILY 90 tablet 3 04/14/20 24 Active ranolazine (Ranexa) 500 mg 12 hr tabletIndication s:Coronary artery disease due to lipid rich plaque TAKE 1 TABLET BY MOUTH TWICE DAILY 180 tablet 3 04/14/20 24 Active benazepril (Lotensin) 20 mg tabletIndication s:Benign hypertensive heart disease without congestive heart failure TAKE 1 TABLET BY MOUTH TWICE DAILY 180 tablet 3 10/30/19 25 Active Active Problems Problem Noted Date Diagnosed Date IFG (impaired fasting glucose) 12/22/2023 Nicotine addiction 12/22/2023 Pulmonary nodule 12/22/2023 Anticoagulant long-term use 12/20/2022 Atrial tachycardia 12/20/2022 Bladder wall thickening 12/20/2022 Benign localized hyperplasia of prostate with urinary obstruction and lower urinary tract symptoms 12/20/2022 BPH with urinary obstruction 12/20/2022 Chest pain 12/20/2022 Chronic GERD 12/20/2022 ASHD (arteriosclerotic heart disease) 12/20/2022 Ex-smoker 12/20/2022 Elevated PSA 12/20/2022 Elevated fasting glucose 12/20/2022 Coronary artery disease 12/20/2022 Family history of malignant neoplasm of prostate 12/20/2022 Gross hematuria 12/20/2022 HTN (hypertension) 12/20/2022 H/O: glaucoma 12/20/2022 Irreducible right inguinal hernia 12/20/2022 Osteoarthritis 12/20/2022 Palpitations 12/20/2022 Abnormal results of cardiovascular function stud ies 07/01/2013 Coronary atherosclerosis 04/14/2012 Essential hypertension 04/14/2012 Hyperlipidemia 04/14/2012 Social History Tobacco Use Types Packs/Day Years Used Date Smoking Tobacco: Former Cigarettes Smokeless Tobacco: Never Tobacco Cessation:Counseling Given: Not Answered Alcohol Use Standard Drinks/Week Comments Yes 0 [...] on file Sexual Orientation Not on file Last Filed Vital Signs Vital Sign Reading [...] Mass Index 30.13 12/28/2024 1:27 PM EDT Plan of Treatment Not on file Insurance [facility] [address] [place] [address] Care Teams Motion Picture Set Worker Relationship Specialty Start Date End Date Bruce Yarbrough DO [address] [place] [address] [place] [id number] PCP - General 12/19/22
--- OUTSIDE RECORDS SUMMARY | 2025-01-04 08:22 | XMS_ITS | Clinical Summary ---
Author Organization [facility] Address [address] [place] [address] Care Team Providers Care Afterschool Name Role Phone Bruce Yarbrough DO Primary Care Provider [phone] Allergies No known active allergies Medications aspirin [...] atherosclerosis 04/14/2012 Essential hypertension 04/14/2012 Hyperlipidemia 04/14/2012 Encounters Date Type Department Care Team Description 12/28/2024 1:15 PM EDT Office Visit [facility] [address] [place] [phone] Royal Cueto MD Coronary artery disease, unspecified vessel or lesion type, unspecified whether angina present, unspecified whether [place] or transplanted heart (Primary Dx); Silent myocardial ischemia 10/28/2024 Refill [facility] [address] [place] [phone] Royal Cueto MD Benign hypertensive heart disease without congestive heart failure from Last 3 Months Family History Medical History Relation Name Comments Cancer Other Hyperlipidemia Other Hypertension Other Relation Name Status Comments Father Mother Other Social History Tobacco Use Types Packs/Day Years [...] 12/28/2024 1:27 PM EDT Plan of Treatment Health Maintenance Due Date Last Done Comments Medicare Annual Wellness (AWV) 1945 Depression Screening 1958 Pneumococcal Vaccine: 50+ Years (1 of 2 - PCV) 1965 IPV Vaccines (2 of 3 - Adult catch-up series) 09/11/1965 08/14/1965 Adult Tetanus 1968 Zoster Vaccines (1 of 2) 1996 Fall Risk Screening 2011 COVID-19 Vaccine ( season) 2024 10/12/2024, 04/07/2024, 09/23/2023, Additional history exists FIT Discontinued 02/17/2020 Colonoscopy Discontinued 05/31/2020 Colorectal Cancer Screening Discontinued Influenza Vaccine Completed 04/07/2024, , 03/26/2022, Additional history exists CT Colonography Discontinued FIT-DNA Discontinued FOBT Discontinued HIB Vaccines Aged Out No longer eligi ble based on patient's age to complete this topic HPV Vaccines Aged Out No longer eligi ble based on patient's age to complete this topic Meningococcal B Vaccine Aged Out No l onger eligible based on patient's age to complete this topic Meningococcal Vaccine Aged Out No real manuela eligible based on patient's age to complete this topic Rotavirus Vaccines Aged Out No longer eligible based on patient's age to complete this topic Sigmoidoscopy Discontinued Insurance [facility] [address] Care Teams Afterschool Relationship Specialty Start Date End Date Bruce Yarbrough DO [address] [facility] [place] [address] PCP - General 12/19/22
--- OUTSIDE RECORDS SUMMARY | 2025-01-04 08:25 | XMS_ITS | CCD ---
Author Organization [facility] Care Team Providers Care Kennel Assistant Name Role Phone PHYSICIAN, DEFAULT Unavailable Unavailable [...] Wolfe Attending Unavailable Wolfe, Julius Admitting Unavailable WOLFE, Julius R Attending Unavailable ELTAHAWY, GURVINDER Attending Unavailable Allergies Allergy Classification Reported Allergen(s) Allergy Type Date of Onset Reaction(s) Facility (1 source) Unable to Assess Drug allergy (disorder) [address] [place] [address] Repository (1 source) No Known Medication Allergies; Translations: [No Known Medication Allergies] Propensity to adverse reactions (disorder) [facility] Repository Medications Current Medications Medication Drug Class(es) Dates Sig (Normalized) Sig (Original) acetaminophen 325 mg / HYDROcodone bitartrate 7.5 mg oral tablet (1 source) Opioid Agonist Start: 09-04-2022 take 1 tablet by mouth once, then take 1 tablet by mouth every hour Thayer 325 mg-7.5 mg oral tablet 1 tab(s), Oral, Once, 1 tab(s), Refill(s) 0, Take 1 hour prior to procedure, [facility]/pharmacy #[id number], 175, cm, 01/13/23 10:23:00 EST, Height/Length Dosing, [...] Problem Classification Problem Date Documented Date Episodic/Chronic Cardiac dysrhythmias (1 source) Supraventricular tachycardia; Translations: [SUPRAVENTRICULAR TACHYCARDIA] Onset: 05-12-2017 Chronic Cardiac dysrhythmias (5 sources) Palpitations; Translations: [PALPITATIONS] Onset: 05-12-2017 Episodic Coronary atherosclerosis and other heart disease (17 sources) Atherosclerotic heart disease of [place] coronary artery without angina pectoris; Translations: [Coronary arteriosclerosis] Onset: 05-12-2017 Chronic Diabetes mellitus without complication (4 sources) Hyperglycemia 07-19-2020 Episodic Disorders of lipid metabolism (5 sources) Hyperlipidemia, unspecified; Translations: [Hyperlipidemia] Onset: 05-12-2017 10-27-2019 Chronic Esophageal disorders (5 sources) Gastro-esophageal reflux disease without esophagitis; Translations: [Gastroesophageal reflux disease] Onset: 05-12-2017 10-27-2019 Chronic Essential hypertension (4 sources) Hypertensive disorder 07-19-2020 Chronic Genitourinary symptoms and ill-defined conditions (4 sources) Ad hematuria 10-02-2020 Episodic Hyperplasia of prostate (11 sources) Benign prostatic hypertrophy with outflow obstruction; Translations: [Benign prostatic hyperplasia with lower urinary tract symptoms] Onset: 07-26-2022 Chronic Osteoarthritis (4 sources) Osteoarthritis 10-27-2019 Chronic Other aftercare (7 sources) Long-term current use of 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; 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] Onset: 07-26-2022 Episodic [...] Onset: 05-12-2017 Episodic Other aftercare (2 sources) half-way (current) use of antithrombotics/ antiplatelets; Translations: [half-way (current) use of aspirin] Onset: 05-12-2017 Episodic Results Test Name Value Interpretation Reference Range Facility Office Visiton 12-28-2024 Follow-up visit [id number] Trina Garay 1945 M Date Provider Department Center 12/28/2024 [facility] Family History Problem Relation Age of Onset Cancer Other Hypertension Other Hyperlipidemia Other Family Status - Relation Status Age at Mother Father Other Level of Service:66485 DC OFFICE/OUTPATIENT ESTABLISHED MOD MDM 30 MIN Normal [facility] Ambulatory Visit Summaryon 0 11-08-2024 Ambulatory Visit Summary Ambulatory Visit Summary ONI GARAY :1945 Visit Date:11/08/2024 Ambulatory Visit Instructions Your Diagnosis Elevated PSA BPH with urinary obstruction Family history of malignant neoplasm of prostate in father Anticoagulant long-term use Your Care Team Attending Physician - STONE BOSWELL, Julius Dumont Primary Care Physician - BRUCE YARBROUGH DO [...] needed Where: [facility] [address] [place] [address]- [id number] Medications What How Much When Instructions Unchanged [...] you for choosing us for your care. Normal [facility] Urology Office/Clinic Noteon 11-08-2024 Urology Office/Clinic Note Urology Office/Clinic Note Chief Complaint 1 year HPI Staff 1 year f/u with PSA. 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 PSA: 10/06/23 is 4.08, 07/16/22 was [...] of . 4. 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 Higher risk for procedural intervention. [1] Follow-up With When Contact Information STONE BOSWELL, Julius Dumont, URL Only if needed [facility] [address], [place] [address] [phone] Additional Instructions: Patient Education Prostate Cancer Screening Stacie Irby, personally scribed for Dr. Wolfe on 11/08/2024 16:02:08. . Documentation recorded by the Stacie herrera, accurately reflects the services(s) I performed and [...] Tobacco - (more content not included)... Normal [facility] Comment on above: Result Comment: Electronically Signed By : Julius WOLFE MD\.br\Date and Time Signed: 11/08/24 16:03 EDT\.br\Electronically Co-Signed By: Stacie Khan.matt\Date and Time Co-Signed: 11/08/24 16:02 EDT MR prostate wo/w conon 08-16 MR prostate wo/w con [facility] [place] [address] MRI Report Signed Patient: Oni Garay MR#: [id number] : 1945 Acct:[id number] Age/Sex: 77 / M ADM Date: 08/15/22 Loc: MR Room: Type: [facility] Attending Dr: Julius Wolfe MD Copies to: [...] Redman Jr., D.O.08/16/2022 12:50 PM Dictation Location: [place] [address] Transcribed By: [facility] 08/16/22 1250 Dictated By: Valentin Redman Jr, DO 08/16/22 1246 Signed By: 08/16/22 1250 Normal [facility] ISTAT XRay CREon 08-15-2022 Creatinine [Mass/Vol] 1.3 mg/dL Normal 0.6-1.3 [facility] Comment on above: Result Comment: ER/ESD physician is noti fied/shown all ISTAT results. Critical values may be confirmed by laboratory testing if deemed necessary by ER attending doctor. Performed By: #### I SCRE #### [address] Point of Care testing , ISTAT GFR ( > 60 Normal [facility] Comment on above: Result Comment: GFR estimated reference range: According to KDOQI guidelines, <60 ml/min/1.73m2 is sufficient to diagnose a patient with chronic kidney disease. PERFORMED BY: [place] [address] PATHOLOGIST WATER TRAINER ISABELL FINLEY M.D. Performed By: #### I SCRE #### [address] Point of Care testing , ISTAT GFR (Non- Am 54 Normal [facility] Comment on above: Performed By: #### ISCRE #### [address] Point of Care testing , ECHOCARDIO M/2D COMPLETEon 0 09-12-2021 ECHOCARDIO M/2D COMPLETE Patient: ONI GARAY Exam Date: 09/12/2021 : 1945 Gender:M Ordering : DR GURVINDER DE LOS SANTOS M.D. Admission #: [id number] Family : DR BRUCE YARBROUGH DKamleshOKamlesh Order #: [id number] CLICK HERE TO VIEW EXAM ECHOCARDIOGRAM REPORT [...] M.D. on 09/12/2021 at 18:02 Normal [facility] CBC AUTO DIFFon 07-20-2021 BASO # 0.1 103/ul Normal 0.0-0.[address] [facility] Comment on above: Performed By: #### CBC #### [facility] [address] [address] [address] Shelby Quiñonez Basophils/100 WBC (Bld) 0.8 % Normal 0.2-2.[address] [facility] Comment on above: Performed By: #### CBC #### [facility] [address] [address] [address] Shelby Quiñonez EO # 0.2 103/ul Normal 0.0-0.7 [facility] Comment on above: Performed By: #### CBC #### [facility] [address] [address] [address] Shelby Quiñonez Eosinophils/100 WBC (Bld) 2.4 % Normal 0.9-7.[address] [facility] Comment on above: Performed By: #### CBC #### [facility] [address] [place] [address] Dr. Shelby Quiñonez Erythrocyte distribution width (RBC) [Ratio] 13.5 % Normal 11.0-15.[address] [facility] Comment on above: Performed By: #### CBC #### [facility] [address] [place] [address] Dr. Shelby Quiñonez Hematocrit (Bld) [Volume fraction] 43.2 % Normal 42.0-54.[address] [facility] Comment on above: Performed By: #### CBC #### [facility] [address] [address] [address] Shelby Quiñonez Hemoglobin (Bld) [Mass/Vol] 13.9 g/dL Critically low 14.0-18.[address] [facility] Comment on above: Performed By: #### CBC #### [facility] [address] [place] [address] Dr. Shelby Quiñonez IG # 0.02 10e3/ul Normal 0.00-0.[address] [facility] Comment on above: Performed By: #### CBC #### [facility] [address] [place] [address] Dr. Shelby Quiñonez IG % 0.3 % Normal 0.0-0.[address] [facility] Comment on above: Performed By: #### CBC #### [facility] [address] [place] [address] Dr. Shelby Quiñonez LYMPH # 2.5 103/ul Normal 1.2-3.[address] [facility] Comment on above: Performed By: #### CBC #### [facility] [address] [place] [address] Dr. Shelby Quiñonez Lymphocytes/100 WBC (Bld) 34.0 % Normal 20.5-60.[address] [facility] Comment on above: Performed By: #### CBC #### [facility] [address] [place] [address] Dr. Shelby Quiñonez MANUAL DIFF REQ NO Normal [facility] Comment on above: Performed By: #### CBC #### [facility] [address] [place] [address] Dr. Shelby Quiñonez MCH (RBC) [Entitic mass] 30.6 pg Normal 25.9-34.[address] [facility] Comment on above: Performed By: #### CBC #### [facility] [address] [address] [address] Shelby Quiñonez MCHC (RBC) [Mass/Vol] 32.2 g/dL Normal 29.9-35.2 [facility] Comment on above: Performed By: #### CBC #### [facility] [address] [place] [address] Dr. Shelby Quiñonez MCV (RBC) [Entitic vol] 95.2 fL Critically high 80.0-94.0 [facility] Comment on above: Performed By: #### CBC #### [facility] [address] [place] [address] Dr. Shelby Quiñonez MONO # 0.6 103/ul Normal 0.3-0.8 [facility] Comment on above: Performed By: #### CBC #### [facility] [address] [place] [address] Dr. Shelby Quiñonez Monocytes/100 WBC (Bld) 8.6 % Normal 1.7-12.0 [facility] Comment on above: Performed By: #### CBC #### [facility] [address] [place] [address] Dr. Shelby Quiñonez NEUT # 3.9 103/ul Normal 1.4-6.[address] [facility] Comment on above: Performed By: #### CBC #### [facility] [address] [place] [address] Dr. Shelby Quiñonez Neutrophils/100 WBC (Bld) 53.9 % Normal 43.0-75.0 [facility] Comment on above: Performed By: #### CBC #### [facility] [address] [place] [address] Dr. Shelby Quiñonez Platelet mean volume (Bld) [Entitic vol] 10.1 fL Normal 9.5-13.5 [facility] Comment on above: Performed By: #### CBC #### [facility] [address] [place] [address] Dr. Shelby Quiñonez PLT 233 103/ul Normal 150-450 [facility] Comment on above: Performed By: #### CBC #### [facility] [address] [place] [address] Dr. Shelby Quiñonez RBC 4.54 106/ul Critically low 4.70-6.10 [facility] Comment on above: Performed By: #### CBC #### [facility] [address] [place] [address] Dr. Shelby Quiñonez WBC 7.2 103/ul Normal 4.0-11.[address] [facility] Comment on above: Performed By: #### CBC #### [facility] [address] [place] [address] Dr. Shelby Quiñonez LIPID PROFILEon 07-20-2021 CHOL-HDL RATIO NORM SEE BELOW Normal [facility] Comment on above: Result Comment: 3.3 - 4.4 LOW RISK 4.4 - 7.1 AVERAGE RISK 7.1 - 11.0 MODERATE RISK >11.0 HIGH RISK Performed By: #### C MP, LIPID #### [facility] [address] [place] [address] Dr. Shelby Quiñonez Cholesterol [Mass/Vol] 130 mg/dL Normal <=200 [facility] Comment on above: Performed By: #### CMP, LIPID #### [facility] [address] [place] [address] Dr. Shelby Quiñonez Cholesterol in HDL [Mass/Vol] 43 mg/dL Normal [facility] Comment on above: Performed By: #### CMP, LIPID #### [facility] [address] [place] [address] Dr. Shelby Quiñonez Cholesterol in LDL [Mass/Vol] 66.6 mg/dL Normal [facility] Comment on above: Performed By: #### CMP, LIPID #### [facility] [address] [place] [address] Dr. Shelby Quiñonez Cholesterol.tota l/Cholesterol in HDL [Mass ratio] 3.0 {ratio} Normal [facility] Comment on above: Performed By: #### CMP, LIPID #### [facility] [address] [place] [address] Dr. Shelby Quiñonez HDL NORMAL > or = 60 mg/dl - LO W CARDIOVASCULAR RISK <40 mg/dl - HIGH CARDIOVASCULAR RISK Normal [facility] Comment on above: Performed By: #### CMP, LIPID #### [facility] [address] [address] [address] Shelby Quiñonez LDL CALC NORMAL SEE BELOW Normal [facility] Comment on above: Result Comment: <100 mg/dl OPTIMAL 100 - 129 mg/dl NEAR OR ABOVE OPTIMAL 130 - 159 mg/dl BORDERLINE HIGH 160 - 189 mg/dl HIGH >190 mg/dl VERY HIGH Performed By: #### C MP, LIPID #### [facility] [address] [address] [address] Shelby Quiñonez Triglyceride [Mass/Vol] 102 mg/dL Normal <=[address] [facility] Comment on above: Performed By: #### CMP, LIPID #### [facility] [address] [place] [address] Dr. Shelby Quiñonez VLDL CALC 20.4 mg/dL Normal [facility] Comment on above: Performed By: #### CMP, LIPID #### [facility] [address] [place] [address] Dr. Shelby Quiñonez PROF 14(COMP METB)on 022 Albumin [Mass/Vol] 3.6 g/dL Normal 3.5-5.[address] [facility] Comment on above: Performed By: #### CMP, LIPID #### [facility] [address] [place] [address] Dr. Shelby Quiñonez Albumin/Globulin [Mass ratio] 1.1 {ratio} Normal [facility] Comment on above: Performed By: #### CMP, LIPID #### [facility] [address] [place] [address] Dr. Shelby Quiñonez ALP [Catalytic activity/Vol] 72 U/L Normal 38-126 [facility] Comment on above: Performed By: #### CMP, LIPID #### [facility] [address] [place] [address] Dr. Shelby Quiñonez ALT [Catalytic activity/Vol] 52 U/L Normal 21-[address] [facility] Comment on above: Performed By: #### CMP, LIPID #### [facility] [address] [place] [address] Dr. Shelby Quiñonez Anion gap [Moles/Vol] 10.9 mmol/L Normal [facility] Comment on above: Performed By: #### CMP, LIPID #### [facility] [address] [address] [address] Shelby Quiñonez AST [Catalytic activity/Vol] 24 U/L Normal 17-[address] [facility] Comment on above: Performed By: #### CMP, LIPID #### [facility] [address] [address] [address] Shelby Quiñonez Bilirubin [Mass/Vol] 1.5 mg/dL Critically high 0.2-1.[address] [facility] Comment on above: Performed By: #### CMP, LIPID #### [facility] [address] [address] [address] Shelby Quiñonez Calcium [Mass/Vol] 9.0 mg/dL Normal 8.4-10.[address] [facility] Comment on above: Performed By: #### CMP, LIPID #### [facility] [address] [address] [address] Shelby Quiñonez Chloride [Moles/Vol] 104 mmol/L Normal 98-[address] [facility] Comment on above: Performed By: #### CMP, LIPID #### [facility] [address] [address] [address] Shelby Quiñonez CO2 [Moles/Vol] 28.5 mmol/L Normal 22.0-30.[address] [facility] Comment on above: Performed By: #### CMP, LIPID #### [facility] [address] [address] [address] Shelby Quiñonez Creatinine [Mass/Vol] 1.16 mg/dL Normal 0.66-1.[address] [facility] Comment on above: Performed By: #### CMP, LIPID #### [facility] [address] [address] [address] Shelby Quiñonez EGFR-AF GAMBIAN >60 Normal >=60 [facility] Comment on above: Performed By: #### CMP, LIPID #### [facility] [address] [address] [address] Shelby Quiñonez EGFR-NON AF GAMBIAN >60 Normal >=60 [facility] Comment on above: Performed By: #### CMP, LIPID #### [facility] [address] [address] [address] Shelby Quiñonez Globulin (S) [Mass/Vol] 3.3 g/dL Normal [facility] Comment on above: Performed By: #### CMP, LIPID #### [facility] [address] [address] [address] Shelby Quiñonez Glucose [Mass/Vol] 98 mg/dL Normal 74-106 [facility] Comment on above: Performed By: #### CMP, LIPID #### [facility] [address] [address] [address] Shelby Quiñonez Potassium [Moles/Vol] 4.4 mmol/L Normal 3.4-5.[address] [facility] Comment on above: Performed By: #### CMP, LIPID #### [facility] [address] [address] [address] Shelby Quiñonez Protein [Mass/Vol] 6.9 g/dL Normal 6.1-8.[address] [facility] Comment on above: Performed By: #### CMP, LIPID #### [facility] [address] [address] [address] Shelby Quiñonez Sodium [Moles/Vol] 139 mmol/L Normal 137-[address] [facility] Comment on above: Performed By: #### CMP, LIPID #### [facility] [address] [address] [address] Shelby Quiñonez Urea nitrogen [Mass/Vol] 15.0 mg/dL Normal 9.0-20.[address] [facility] Comment on above: Performed By: #### CMP, LIPID #### [facility] [address] [address] [address] Shelby Quiñonez Urea nitrogen/Creatin ine [Mass ratio] 12.9 mg/mg Normal [facility] Comment on above: Performed By: #### CMP, LIPID #### [facility] [address] [address] [address] Shelby Quiñonez Cardiovascular Lab Reporton 05-13-2017 Cardiovascular Lab Report [facility] Patient Name: [facility] MR #: [id number] Physician: Shahana Machado.D.Medicine Service Date: 05/12/2017Division of Birthdate: 6Cardiology [facility] #: [facility] [facility], [place] [address]Peg[place] Fax Cardiovascular Laboratory ReportINDICATION: Oni Garay is [...] signed a consent. 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 Theright wrist area was prepped and draped in usual fashion. Shad's test wasfavorable. Access in the right radial artery was obtained usingmicropuncture technique. A 6-Tunisian x 11 cm Hydrophilic sheath wasadvanced. Verapamil was given through the sheath and heparin wasadministered intravenously. Bilateral selective coronary angiography wasthen performed using 6-Tunisian JL3.5 and JR5 diagnostic catheters.Catheters were removed.Therapeutic ACT was confirmed during the procedure. A 6-Tunisian XB3.0guiding catheter was advanced and used to engage the left main coronaryostium. A TweepsMap FFR wire was advanced and equalization of [...] restenosis in the proximal LAD and patent [id number] LAD stent.4. A 30% to 40% stenosis in the mid circumflex vessel.RECOMMENDATIONS:1. Intensified medical therapy.2. Follow up in Cardiology Clinic.Electronically Signed by:Taco Ball M.D. 05/17/2017 12:55 P Taco Ball M.D.Date Dict: 05/12/2017/01:38 P/Taco Ball M.D.Date Trans: 05/13/2017 09:25 A/Megan_JN:[id number]: Ghulam Holm M.D. [address] [place] [address] Vital Signs Date Time Vital Sign Value Performing Clinician Faci lity 10-13-2023 11:18-0400 Blood Pressure Location Juliusmitzi WOLFE [facility] 10-13-2023 11:18-0400 Diastolic blood pressure 79 mm[Hg] Julius WOLFE [facility] 10-13-2023 11:18-0400 Heart rate 84 /min Julius WOLFE [facility] 10-13-2023 11:18-0400 Respiratory rate 16 /min Julius WOLFE [facility] 10-13-2023 11:18-0400 Systolic blood pressure 135 mm[Hg] Julius WOLFE [facility] 10-11-2022 11:06-0400 Blood Pressure Location Juliusmitzi WOLFE [facility] 10-11-2022 11:06-0400 Diastolic blood pressure 86 mm[Hg] Julius WOLFE [facility] 10-11-2022 11:06-0400 Heart rate 70 /min Juliusmitzi WOLFE [facility] 10-11-2022 11:06-0400 Respiratory rate 16 /min Juliusmitzi WOLFE [facility] 10-11-2022 11:06-0400 Systolic blood pressure 137 mm[Hg] Julius WOLFE [facility] Encounters Encounter Date Encounter Type Care Provider Facility Start: 12-28-2024 End: 12-28-2024 ambulatory EHAB [facility] Start: 11-08-2024 End: 11-08-2024 ambulatory Julius WOLFE Facility:[facility] Start: 10-13-2023 End: 10-13-2023 Patient encounter procedure Julius WOLFE [facility] Start: 10-11-2022 End: 10-11-2022 Patient encounter procedure Julius WOLFE [facility] Start: 09-24-2022 End: 09-24-2022 Patient encounter procedure Julius WOLFE [facility] Start: 08-15-2022 End: 08-15-2022 ambulatory Bruce Yarborugh Facility:[facility] Start: 07-26-2022 End: 07-26-2022 Patient encounter procedure Julius WOLFE [facility] Start: 09-12-2021 End: 09-13-[address] GURVINDER DE LOS SANTOS Facility:[facility] Start: 07-20-2021 End: 07-21-2021 ambulatory KATARZYNA RODRIGUEZ Facility:[facility] Start: 02-23-2021 ambulatory KATARZYNA RODRIGUEZ Facility:[facility] Start: 01-12-2021 End: 01-13-[address] JULIUS WOLFE Facility:[facility] Start: 05-12-2017 End: 05-13-2017 Ambulatory PROVIDER UNKNOWN Facility:[facility] Start: 05-06-2017 End: 05-07-2017 Ambulatory DEFAULT PHYSICIAN Facility:[facility] Procedures Date Procedure Procedure Detail Performing Clinician Start: 09-24-2022 Transrectal biopsy o f prostate using ultrasound guidance Julius WOLFE Start: 01-12-[address] GURVINDER STUART Comment on above: Performed By: #### P SAD #### [facility] [address] [place] [address] Estefany Carvajal Start: 09-07-2020 Transurethral prostatectomy Julius WOLFE Start: 08-15-2020 Cystoscopy Julius KULWINDER ABBASI Start: 08-02-2020 Repair of inguinal hernia Julius WOLFE Start: 05-31-2020 Colonoscopy Julius KULWINDER ABBASI Start: 08-04-2012 Transrectal biopsy o f prostate using ultrasound guidance Juliusmitzi WOLFE Cardiac catheterization Sahrar martinaelizabeth WOLFE Comment on above: 2001, 2002, 2011, 2016 Laser assisted in si tu keratomileusis Juliusmitzi WOLFE Placement of stent Julius ELLISON Immunizations Immunization Date Immunization Notes Care Provider Fa [facility] 04-07-2023 influenza virus vaccine, unspecified formulation Juliusmitzi WOLFE [facility] 11-08-2022 SARS-CoV-2 (COVID-19 ) [id number] Juliusmitzi WOLFE [facility] 03-27-2022 SARS-CoV-2 (COVID-19 ) [id number].[id number] Julius STONE [facility] 03-26-2022 influenza virus vaccine, unspecified formulation Juliusmitzi WOLFE [facility] 10-12-2021 SARS-CoV-2 mRNA (hhkfdnudfpz-eoiy-txtfk se) vaccine Juliusmitzi WOLFE [facility] 04-09-2021 SARS-CoV-2 (COVID-19 ) mRNA BNT-162b2 vax Julius STONE [facility] 03-29-2021 influenza virus vaccine, unspecified formulation Julius WOLFE [facility] 03-14-2021 influenza virus vaccine, unspecified formulation Julius WOLFE [facility] 09-08-2020 SARS-CoV-2 (COVID-19 ) mRNA BNT-162b2 vax Julius WOLFE [facility] 08-18-2020 SARS-CoV-2 (COVID-19 ) mRNA BNT-162b2 vax Julius WOLFE [facility] 04-07-2020 influenza virus vaccine, unspecified formulation Julius WOLFE [facility] Payers Date Payer Category Payer Self-pay 2011 Medicare [id number] 1958 Medicare [id number] 1959 Private Health Insurance [id number] 1959 Self-pay [id number] 1945 Unknown [id number] 2.16.84 [id number] 1945 Unknown [id number] 2.16.84 [id number] 1945 Unknown [id number] 2.16.84 [id number] 1945 Unknown [id number] 2.16.84 [id number] 1945 Unknown [id number] 2.16.8 [id number] Medicare [id number] Unknown Unknown [id number] 2.16.8 [id number] Social History Date Type Detail Facility Start: 07-26-2022 Tobacco smoking status Ex-smoker (ana maría palumbo) [facility] Comment on above: Quit in 1996 Sex Assigned At Male [facility] Functional Status Date Assessment Result Facility 10-13-2023 Functional Status N/A [facility] 10-11-2022 Functional Status N/A [facility] 09-19-2022 Functional Status N/A [facility] 07-26-2022 Functional Status N/A [facility] Clinical Notes 07-26-2022 to 12-28-2024 Note Date & Type Note Facility 12-28-2024 Note Cardiology Clinic No te Chief Complaint: Patient here for a 1 year follow up. Patient states he still feels fluttering other thompson nothing new. Patient states he recently had a complete physical with Dr. Yarbrough and a renal US due to lower back pain. HPI Mr Garay is a 77-year-old coronary artery disease status post PCI x2 to LAD 2001, RCA t3obsqw 2011, x2 stents in 2012, atrial tachycardia, [...] kg (204 lb) SpO2 95% BMI 30.13 kg/m??? Physical Exam General: Awake, alert, NAD Pulm: [...] restenosis in the proximal LAD and patent sdj-we-lefjrx LAD stent. (more content not included)... [facility] 11-08-2024 Note Patient Education Oncology Prostate Cancer [...] Where to find more information ??? [employer] [place] [employer]: www.cancer.org ??? [place] [employer]: www.auanet.org Contact a health care [...] The prostate gland (more content not included)... [facility] 10-13-2023 Hospital Discharge instructions Patient Education [...] treatment? Where to find more information The [place] [employer]: www.cancer.org [place] [employer]: www.auanet.org Contact a health care [...] provider. Document Revised: 12/24/2021 Document Reviewed: 12/24/2021 [employer] Patient Education 2022 [employer] Follow Up Care 10/11/2022 11:58:00 With:STONE BOSWELL, Julius Dumont, URL Address: [facility] [address] [place] [address]- [phone] When: Unknown Comments:1 yr w/ PSA [facility] 10-11-2022 Hospital Discharge instructions Patient Education 10/11/2022 [...] one of these risk factors: ?Being of -[place] descent. ?Having a family history of prostate [...] you: Are older than age 55. Are -[place]ian. Have a father, brother, or uncle who [...] 04/10/2018 Document Revised: 06/12/2018 Document Reviewed: 04/10/2018 [employer] Patient Education 2019 [employer]. Follow Up Care 09/04/2022 11:13:56 With:STONE BOSWELL, Julius Dumont, URL Address: [address] [place] [address] [place] [address]- When: Unknown [facility] 09-24-2022 Hospital Discharge instructions Patient Education 09/24/2022 [...] for your post-operative appointment in 1-2 weeks [phone] or [phone] Follow Up Care 09/04/2022 11:10:32 With:Julius WOLFE Address: [facility] [address] [place] [address]- Business (1) When: Unknown Comments:Keep scheduled appointment [facility] 07-26-2022 Hospital Discharge instructions Patient [...] one of these risk factors: ?Being of -[place] descent. ?Having a family history of prostate [...] you: Are older than age 55. Are -[place]ian. Have a father, brother, or uncle who [...] 04/10/2018 Document Revised: 06/12/2018 Document Reviewed: 04/10/2018 [employer] Patient Education 2020 [employer]. Follow Up Care 07/23/2021 13:25:04 With:Julius WOLFE MD, URL Address: [address] [place], [place] [id number]- When: Unknown [facility] Evaluation + Plan note No data available for this section [facility] Evaluation + Plan note Future Appointments Appointment Date:10/11/2022 10:30:00 AM Scheduled Provider:uJlius WOLFE MD Location:[facility] Appointment Type:URO Office Visit Diagnostic Tests PendingProstate Histology ([facility]) 09/24/22 [facility] Evaluation + Plan note Future Appointments Appointment Date:10/13/2023 10:30:00 AM Scheduled Provider:Julius WOLFE MD Location:[facility] Appointment Type:URO Office Visit Diagnostic Tests PendingPSA Total 08/14/23 [facility] Evaluation + Plan note Future Appointments Appointment Date:10/15/2024 11:00:00 AM Scheduled Provider:Julius WOLFE MD Location:[facility] Appointment Type:URO Office Visit Diagnostic Tests PendingPSA Total 10/13/23 [facility] Progress note No data available for this section [facility] Summary Purpose Family History No Family History Records FoundNo Family History Records FoundNo Family History Records Found No data available for this section No Family History Records FoundNo Family History Records Found Advance Directives No Advanced Directives Records FoundNo Advanced Directives Records FoundNo Advanced Directives Records FoundNo Advanced Directives Records FoundNo Advanced Directives Records Found Additional Source Comments (unrecognized sect ion and content) No Status Records FoundNo Status Records FoundNo Status Records FoundNo Status Records FoundNo Status Records Found INFORMATION SOURCE (unrecogn ized section and content) DATE CREATED AUTHOR 01/06/2018 [facility] DATE CREATED AUTHOR AUTHOR'S ORGANIZ ATION 09/15/2021 [facility] DATE CREATED AUTHOR AUTHOR'S ORGANIZ ATION 08/16/2022 [facility] DATE CREATED AUTHOR AUTHOR'S ORGANIZ ATION 11/09/2024 [facility] DATE CREATED AUTHOR AUTHOR'S ORGANIZ ATION 12/31/2024 [facility] Patient Care team informatio n (unrecognized section and content) Personnel Name: BRUCE YARBROUGH DO Address: Address: [address] [place] [address] Personnel Name: JOON BYRNES BRUCE Address: Address: [address] [place] [address] [address] Personnel Name: JOON BRUCE Address: Address: [address] [place] [address] Personnel Name: BRUCE YARBROUGH DO Address: Address: [address] [place] [address] FOR RECORDS PERTAINING TO PATIENTS WHO ARE [...] BE BASED ON THE PRIMARY CLINICAL RECORDS. [employer] provides no warranty or guarantee of the accuracy or completeness of information in this document.
--- NOTE | 2025-01-04 09:47 | PC.NURSE ---
Nursing Note Cardiac Stress Test Reviewed: Medication, allergies and patient history reviewed. Stress Test: [x ] Patient tolerated stress test well. [ ] Patient unable to tolerate walking on treadmill. Switched to Lexiscan stress test. [x ] No chest pain noted per patient [ ] Chest pain that resolved prior to leaving stress lab. [x ] No dyspnea noted. [ ] Dyspnea that resolved prior to leaving stress lab. [x ] Patient left stress lab asymptomatic and hemodynamically stable. [ ] Patient taken to the Emergency Room due to non-resolving symptoms following stress test. [ ] Patient achieved target heart rate. [ ] Patient unable to achieve target heart rate. [ ] Aminophylline administered as reversal agent to Lexiscan (Regadenoson). [ ] Nitro administered. Nursing Comments:Pt had Lexiscan test done. Pt had no CP or SOB but did have a headache after the Michelle was given. States it was almost gone prior to ambulating to cafeteria for breakfast prior to second set of images.
[2025-01-04] MEDS: REGADENOSON 0.4 MG/5 ML SYRINGE IV (09:59)
--- NOTE | 2025-01-06 12:13 | PM.STRESS ---
Stress Test Stress Test Requesting physician: Royal Cueto Procedure: Lexiscan nuclear stress test General Information: Reason for Stress Test: [Coronary artery disease, silent myocardial ischemia] Cardiac History and Risk Factors: [History of coronary artery disease, hypertension, former smoker] Resting 12 - Lead Electrocardiogram: Normal sinus rhythm, heart rate 62 bpm, right bundle branch block. Resting heart rate 64 bpm, resting blood pressure 132/84 mmHg. The patient was injected with 0.4 mg of IV Lexiscan and he was monitored for few minutes. Max heart rate 104 bpm which represents 73% of age-predicted maximum heart rate and peak blood pressure 132/84. The patient did not report any chest pain or shortness of breath. Patient reported dizziness and headache which resolved within 2 to 4 minutes of Lexiscan injection. [id number], throughout the test did not show significant T or ST changes. Rare PACs were noted Stress Test: Protocol: [Lexiscan] Exercise Capacity: [Not applicable] Blood Pressure Response: [Normal] Rhythm: [No arrhythmia] ST - Response: [No ST changes] Patient Response: [Dizziness and headache] Interpretation: Negative Lexiscan EKG stress test for ischemia The myocardial perfusion images result is reported separately Juan Diego Navas MD [facility]
== END 2025-01-04 08:15 | disposition home or self-care (01) ==
LOC: NM 08:15
PROVIDERS: PCP Internal Medicine; Visit Provider Internal Medicine Interventional Cardiology
DX: I25.10 Atherosclerotic heart disease of native coronary artery without angina pectoris (principal); I25.6 Silent myocardial ischemia
CPT/HCPCS: 78452; 93017; A9500; J2785